=== PATIENT | female | born 1990 | race Caucasian/White ===

== ENCOUNTER 2017-10-31 19:05 | Emergency (ER) | payer BC ==
[2017-10-31] MEDS ORDERED: Silver Sulfadiazine 1% Crm 50 GM Tube TOP ONE (19:29)
[2017-10-31] MEDS ORDERED: Diphtheria,Pertussis(Acell),Tetanus Vaccine 0.5 ML Syringe IM ONE (19:31)
--- NOTE | 2017-10-31 19:34 | EDM.PDOC ---
ED HPI GENERAL MEDICAL PROBLEM - General Chief Complaint: Burn Stated Complaint: LEFT INDEX FINGER GREASE BURN Time Seen by Provider: 10/31/17 19:12 Source of Information: Reports: Patient History Limitations: Reports: No Limitations - History of Present Illness INITIAL COMMENTS - FREE TEXT/NARRATIVE: HISTORY AND PHYSICAL: History of present illness: 27-year-old female presenting to emergency department with chief complaint of her into the left index finger. Patient states that she was cooking a chicken fried steak when the vegetable oil splashed onto the tip of her left index finger approximately a half an hour ago. She did run some cool water over the area but secondary to it hurting intensely currently 9 out of 10 she came into the emergency department for further evaluation. Patient denies any other injuries or jeronimo. Pain isolated to her left index finger but with some throbbing and radiation down the finger into her hand. Patient states her last tetanus was greater than 5 years ago. Patient has no allergy to penicillins. On examination there is a superficial burn to the tip of the left first digit less than 1% body surface area. Areas erythematous and dry without any weeping. Burn does not appear to be circumferential. Review of systems: As per history of present illness and below otherwise all systems reviewed and negative. Past medical history: As per history of present illness and as reviewed below otherwise noncontributory. Surgical history: As per history of present illness and as reviewed below otherwise noncontributory. Social history: No reported history of drug or alcohol abuse. Family history: As per history of present illness and as reviewed below otherwise noncontributory. Physical exam: HEENT: Atraumatic, normocephalic, pupils reactive, negative for conjunctival pallor or scleral icterus, mucous membranes moist, throat clear, neck supple, nontender, trachea midline. Lungs: Clear to auscultation, breath sounds equal bilaterally, chest nontender. Heart: S1S2, regular, negative for clicks, rubs, or JVD. Abdomen: Soft, nondistended, nontender. Negative for masses or hepatosplenomegaly. Negative for costovertebral tenderness. Pelvis: Stable nontender. Genitourinary: Deferred. Rectal: Deferred. Extremities: Superficial burn to left tip index finger. Mildly erythematous, dry , no weeping or blister formation. Atraumatic, negative for cords or calf pain. Neurovascular unremarkable. Neuro: Awake, alert, oriented. Cranial nerves II through XII unremarkable. Cerebellum unremarkable. Motor and sensory unremarkable throughout. Exam nonfocal. Diagnostics: [] Therapeutics: 1% lidocaine for digital block Cold soapy water cleaning Silvadene Impression: Superficial burn left index finger less than 1% Plan: I did do a digital block as patient was having significant pain radiating into her hand. After digital block patient felt much better and the area was cleaned thoroughly. She was given Tdap as her last tetanus was within 5 years ago. Area was covered in Silvadene and wrapped. She was instructed to use ibuprofen regularly to decrease inflammation and burn response. She was instructed to follow-up with her primary care provider Lyudmila Grey at [place]. I also gave her information on Dr. Larson plastic surgery for further evaluation. Dr. Larson is out until the 11th of this month but I suggested that she follow with her anyway. She was instructed to keep the area clean and return to emergency department if she had a new or worsening symptoms. Definitive disposition and diagnosis as appropriate pending reevaluation and review of above. Treatments FLUE BLOWER: Reports: Other (see below) Other Treatments FLUE BLOWER: wash with water left index Pain Score (Numeric/FACES): 9 - Related Data Allergies Allergy/AdvReac Type Severity Reaction Status Date / Time Penicillins Allergy Swelling Verified 10/31/17 19:11 Home Meds: Home Meds Cholecalciferol (Vitamin D3) [Vitamin D3] 0 mg PO DAILY 10/31/17 [History] Cyanocobalamin (Vitamin B-12) [Vitamin B-12] 1 tab PO DAILY 10/31/17 [History] Ergocalciferol (Vitamin D2) [Vitamin D2] 0 mg PO DAILY 10/31/17 [History] buPROPion [Wellbutrin] 1 cap PO BID 10/31/17 [History] Past Medical History Psychiatric History: Reports: Anxiety, Depression Hematologic History: Reports: B12 Deficiency, Other (See Below) Other Hematologic History: Vit D deficiency - Past Surgical History HEENT Surgical History: Reports: Adenoidectomy, Tonsillectomy Musculoskeletal Surgical History: Reports: Other (See Below) Other Musculoskeletal Surgeries/Procedures:: knee sx Social & Family History - Family History Family Medical History: Noncontributory - Tobacco Use Smoking Status *Q: Never Smoker - Recreational Drug Use Recreational Drug Use: No ED ROS GENERAL - Review of Systems Review Of Systems: ROS reveals no pertinent complaints other than HPI. ED EXAM, GENERAL - Physical Exam Exam: See Below Course - Vital Signs Last Recorded V/S: Last Vital Signs Temp 97.7 F 10/31/17 19:05 Pulse 78 10/31/17 19:05 Resp 18 10/31/17 19:05 BP 150/72 H 10/31/17 19:05 Pulse Ox 96 10/31/17 19:05 - Orders/Labs/Meds Orders: Active Orders 24 hr Category Date Time Status Vaccines to be Administered [RC] PER UNIT ROUTINE Care 10/31/17 19:31 Active Meds: Medications Discontinued Medications Generic Name Dose Route Start Last Admin Trade Name Freq PRN Reason Stop Dose Admin Diphtheria/Tetanus/Acell Pertussis 0.5 ml 10/31/17 19:31 10/31/17 19:39 Adacel IM 10/31/17 19:32 0.5 ml .ONCE ONE Administration Lidocaine HCl 5 ml 10/31/17 19:29 10/31/17 19:38 Xylocaine-Mpf 1% INJECT 10/31/17 19:30 5 ml ONETIME ONE Administration Silver Sulfadiazine 1 gm 10/31/17 19:29 10/31/17 19:38 Silvadene 1% Cream 50 Gm TOP 10/31/17 19:30 1 applic ONETIME ONE Administration Departure - Departure Time of Disposition: 19:52 Disposition: Home, Self-Care 01 Condition: Good Clinical Impression: Superficial burn of back of left hand Qualifiers: Encounter type: initial encounter Qualified Code(s): T23.162A - Burn of first degree of back of left hand, initial encounter - Discharge Information Referrals: Lyudmila Grey NP [Primary Care Provider] - Forms: ED Department Discharge Additional Instructions: My general discharge The following information is given to patients seen in the emergency department who are being discharged to home. This information is to outline your options for follow-up care. We provide all patients seen in our emergency department with a follow-up referral. The need for follow-up, as well as the timing and circumstances, are variable depending upon the specifics of your emergency department visit. If you don't have a primary care physician on staff, we will provide you with a referral. We always advise you to contact your personal physician following an emergency department visit to inform them of the circumstance of the visit and for follow-up with them and/or the need for any referrals to a consulting specialist. The emergency department will also refer you to a specialist when appropriate. This referral assures that you have the opportunity for follow-up care with a specialist. All of these measure are taken in an effort to provide you with optimal care, which includes your follow-up. Under all circumstances we always encourage you to contact your private physician who remains a resource for coordinating your care. When calling for follow-up care, please make the office aware that this follow-up is from your recent emergency room visit. If for any reason you are refused follow-up, please contact the [facility] Emergency Department at and asked to speak to the emergency department charge nurse. [address] [address] [facility] - Plastic Surgery Professional Building [address] [place] [address], [address] [place] [address] Take ibuprofen on a regular basis throughout the day for pain and inflammation. Keep area clean and apply Silvadene as discussed. Follow-up with your primary care provider. Follow-up with Dr. aLrson plastic surgery with number of 12. Return to emergency department if any new or worsening symptoms. - My Orders Last 24 Hours: My Active Orders 10/31/17 19:31 Vaccines to be Administered [RC] PER UNIT ROUTINE - Assessment/Plan Last 24 Hours: My Active Orders 10/31/17 19:31 Vaccines to be Administered [RC] PER UNIT ROUTINE
[2017-10-31 20:05] VITALS: BP 123/77
== END 2017-10-31 20:00 | disposition home or self-care (01) ==
LOC: MW.ED 19:05
DX: T23.122A Burn of first degree of single left finger (nail) except thumb, initial encounter (principal); T31.0 Burns involving less than 10% of body surface; Z23 Encounter for immunization; Z79.899 Other long term (current) drug therapy; F41.9 Anxiety disorder, unspecified; F32.9 Major depressive disorder, single episode, unspecified; Z88.0 Allergy status to penicillin
CPT/HCPCS: 16000; 64450; 90471; 90715; 99283; A9270; 99282

== ENCOUNTER 2018-11-10 08:20 | Inpatient (IN) | payer BC ==
[2018-11-10] MEDS ORDERED: Tranexamic Acid 1,000 MG in Sodium Chloride 0.9% 100 ML IV PRN (09:36)
[2018-11-10] MEDS ORDERED: Misoprostol 200 MCG Tab PO PRN (09:36)
[2018-11-10] MEDS ORDERED: Methylergonovine 0.2 MG/1 ML Amp IM PRN (09:36)
[2018-11-10] MEDS ORDERED: Sodium Chloride 0.9% 10 ML Syringe FLUSH PRN (09:36)
[2018-11-10] MEDS ORDERED: Water For Irrigation,Sterile 1,000 ML Container IRR PRN (09:36)
[2018-11-10] MEDS ORDERED: Butorphanol 1 MG/ML SDV IVPUSH PRN (09:36)
[2018-11-10] MEDS ORDERED: Carboprost Tromethamine 250 MCG/1 ML Amp IM PRN (09:36)
[2018-11-10] MEDS ORDERED: Lidocaine 1% 50 ML MDV INJECT PRN (09:36)
[2018-11-10] MEDS ORDERED: Sodium Chloride 0.9% 10 ML SDV IV PRN (09:36)
[2018-11-10] MEDS ORDERED: Nalbuphine 10 MG/1 ML Vial IVPUSH PRN (09:36)
[2018-11-10] MEDS ORDERED: Sodium Chloride 0.9% 2.5 ML Syringe FLUSH PRN (09:36)
[2018-11-10] MEDS ORDERED: Oxytocin/0.9 % Sodium Chloride 30 UNIT/500 ML BAG IV SCH (09:45)
[2018-11-10] MEDS: Lactated Ringers 1,000 ML IV SCH ×3 (10:34→16:59)
[2018-11-10] MEDS: Clindamycin Phosphate in D5W 900 MG in Premix Bag 1 BAG IV SCH ×4 (10:34→18:01)
[2018-11-10] MEDS ORDERED: Bupivacaine 0.25% 10 ML SDV ONE (13:02)
[2018-11-10] MEDS ORDERED: fentaNYL 100 MCG/2 ML SDV ONE (13:02)
[2018-11-10] MEDS ORDERED: Lidocaine HCl/EPINEPHrine 5 ML IJ ONE (13:03)
--- NOTE | 2018-11-10 13:53 | PCM.PREANE ---
Preanesthetic Assessment - Procedure Proposed Procedure: BARAK - Anesthesia/Transfusion/Family Hx Anesthesia History: Prior Anesthesia Without Reaction Other Type of Anesthesia Reaction Comment: DENIES ANY PROBLEMS WITH ANESTHESIA Family History of Anesthesia Reaction: No Transfusion History: No Prior Transfusion(s) - Review of Systems General: No Symptoms Pulmonary: No Symptoms Cardiovascular: No Symptoms Gastrointestinal: Other (morbid obesity) Neurological: Pre-Existing Deficit (c/o numbness and tingling in arms and legs throughout ) Other: Reports: None - Physical Assessment Height: 5 ft 4 in Weight: 123.831 kg ASA Class: 3 Mental Status: Alert & Oriented x3 Airway Class: Mallampati = 2 Dentition: Reports: Normal Dentition ROM/Head Extension: Full Lungs: Clear to Auscultation, Normal Respiratory Effort Cardiovascular: Regular Rate, Regular Rhythm - Lab Values: Laboratory Last Values WBC 13.24 K/uL (4.0-11.0) H 11/10/18 10:14 RBC 3.93 M/uL (4.30-5.90) L 11/10/18 10:14 Hgb 11.1 g/dL (12.0-16.0) L 11/10/18 10:14 Hct 33.4 % (36.0-46.0) L 11/10/18 10:14 MCV 85.0 fL (80.0-98.0) 11/10/18 10:14 MCH 28.2 pg (27.0-32.0) 11/10/18 10:14 MCHC 33.2 g/dL (31.0-37.0) 11/10/18 10:14 RDW Std Deviation 40.8 fl (28.0-62.0) 11/10/18 10:14 RDW Coeff of Caroline 13 % (11.0-15.0) 11/10/18 10:14 Plt Count 230 K/uL (150-400) 11/10/18 10:14 MPV 12.00 fL (7.40-12.00) 11/10/18 10:14 Nucleated RBC % 0.0 /100WBC 11/10/18 10:14 Nucleated RBCs # 0 K/uL 11/10/18 10:14 Urine Color YELLOW 11/10/18 11:21 Urine Appearance CLEAR 11/10/18 11:21 Urine pH 7.0 (5.0-8.0) 11/10/18 11:21 Ur Specific [place] 1.010 (1.001-1.035) 11/10/18 11:21 Urine Protein NEGATIVE mg/dL (NEGATIVE) 11/10/18 11:21 Urine Glucose (UA) NEGATIVE mg/dL (NEGATIVE) 11/10/18 11:21 Urine Ketones >=80 mg/dL (NEGATIVE) 11/10/18 11:21 Urine Occult Blood LARGE (NEGATIVE) H 11/10/18 11:21 Urine Nitrite NEGATIVE (NEGATIVE) 11/10/18 11:21 Urine Bilirubin NEGATIVE (NEGATIVE) 11/10/18 11:21 Urine Urobilinogen 0.2 EU/dL (<2.0) 11/10/18 11:21 Ur Leukocyte Esterase SMALL (NEGATIVE) H 11/10/18 11:21 Membrane Rupture POSITIVE 11/10/18 08:43 Blood Type A POSITIVE 11/10/18 10:14 Antibody Screen NEGATIVE 11/10/18 10:14 - Allergies Allergies/Adverse Reactions: Allergies Allergy/AdvReac Type Severity Reaction Status Date / Time Penicillins Allergy Intermediate Swelling Verified 11/10/18 08:54 - Blood Blood Available: No Product(s) Available: None - Anesthesia Plan Pre-Op Medication Ordered: None - Acknowledgements Anesthesia Type Planned: Epidural Pt an Appropriate Candidate for the Planned Anesthesia: Yes Alternatives and Risks of Anesthesia Discussed w Pt/Guardian: Yes Pt/Guardian Understands and Agrees with Anesthesia Plan: Yes PreAnesthesia Questionnaire - Past Health History Medical/Surgical History: Denies Medical/Surgical History [employer] History: Reports: Psychiatric History: Reports: Anxiety, Depression Hematologic History: Reports: B12 Deficiency, Other (See Below) Other Hematologic History: Vit D deficiency - Infectious Disease History Infectious Disease History: Reports: Chicken Pox - Past Surgical History HEENT Surgical History: Reports: Adenoidectomy, Tonsillectomy Musculoskeletal Surgical History: Reports: Other (See Below) Other Musculoskeletal Surgeries/Procedures:: knee sx - SUBSTANCE USE Smoking Status *Q: Never Smoker Second Hand Smoke Exposure: No - HOME MEDS Home Medications: Home Meds Doxylamine/Pyridoxine HCl [Diclegis Dr 10-10 mg Tablet] 2 tab PO DAILY 10/24/18 [History] Folic Acid 1 tab PO DAILY 10/24/18 [History] PNV95/Ferrous Fumarate/FA [ Tablet] 1 tab PO DAILY 10/24/18 [History] - CURRENT (IN HOUSE) MEDS Current Meds: Current Medications Butorphanol Tartrate (Stadol) 1 mg IVPUSH Q1H PRN PRN Reason: Pain Carboprost Tromethamine (Hemabate Ds) 250 mcg IM ASDIRECTED PRN PRN Reason: Post Hemorrhage Tranexamic Acid 1,000 mg/ (Sodium Chloride) 110 mls @ 660 mls/hr IV ONETIME PRN PRN Reason: Bleeding Lactated Ringer's (Ringers, Lactated) 1,000 mls @ 150 mls/hr IV ASDIRECTED [facility] Last Admin: 11/10/18 13:00 Dose: 999 mls/hr Oxytocin/Sodium Chloride (Oxytocin 30 Unit/500 Ml-Ns) 30 unit in 500 mls @ 500 mls/hr IV TITRATE [facility] Clindamycin Phosphate 900 mg/ (Premix) 50 mls @ 100 mls/hr IV Q8H [facility] Last Admin: 11/10/18 10:34 Dose: 100 mls/hr Lidocaine HCl (Xylocaine 1%) 50 ml INJECT ONETIME PRN PRN Reason: Laceration repair Methylergonovine Maleate (Methergine) 0.2 mg IM ASDIRECTED PRN PRN Reason: Post Hemorrhage Misoprostol (Cytotec) 200 mcg PO ONETIME PRN PRN Reason: Post Hemorrhage Nalbuphine HCl (Nubain) 10 mg IVPUSH Q1H PRN PRN Reason: Pain (severe 7-10) Sodium Chloride (Saline Flush) 10 ml FLUSH ASDIRECTED PRN PRN Reason: Keep Vein Open Sodium Chloride (Saline Flush) 2.5 ml FLUSH ASDIRECTED PRN PRN Reason: Keep Vein Open Sodium Chloride (Normal Saline) 10 ml IV ASDIRECTED PRN PRN Reason: IV Use Sterile Water (Sterile Water For Irrigation) 1,000 ml IRR ASDIRECTED PRN PRN Reason: delivery Discontinued Medications Bupivacaine HCl (Sensorcaine-Mpf 0.25%) Confirm Administered Dose 10 ml .ROUTE .STK-MED ONE Stop: 11/10/18 13:03 Fentanyl (Sublimaze) Confirm Administered Dose 100 mcg .ROUTE .STK-MED ONE Stop: 11/10/18 13:03 Fentanyl/Bupivacaine HCl (Jknitndh-Ylkgl-Eu 2 Mcg/Ml-0.125%) Confirm Administered Dose 100 mls @ as directed .ROUTE .STK-MED ONE Stop: 11/10/18 13:03 Lidocaine/Epinephrine (Lidocaine 1.5%-Epi 1:200,000) Confirm Administered Dose 5 ml IJ .STK-MED ONE Stop: 11/10/18 13:04
[2018-11-10] MEDS ORDERED: Bupivacaine 0.5% 10 ML SDV ONE (21:06)
[2018-11-11] MEDS ORDERED: Witch Hazel Medicated Pads 40/Jar TOP PRN (01:12)
[2018-11-11] MEDS ORDERED: Bisacodyl 10 MG Supp RECTAL PRN (01:12)
[2018-11-11] MEDS ORDERED: Benzocaine/Menthol 20%-0.5% Spray 78 GM Cannister TOP PRN (01:12)
[2018-11-11] MEDS ORDERED: Ibuprofen 400 MG Tab PO PRN (01:12)
[2018-11-11] MEDS ORDERED: Ondansetron 4 MG/2 ML SDV IVPUSH PRN (01:12)
[2018-11-11] MEDS ORDERED: Lanolin 100% Cream 7 GM Tube TOP PRN (01:12)
[2018-11-11] MEDS ORDERED: Acetaminophen 500 MG Tab PO PRN ×2 (01:12)
[2018-11-11] MEDS ORDERED: oxyCODONE 5 MG Tab PO PRN (01:12)
--- NOTE | 2018-11-11 01:22 | PCM.OPNOTE ---
- General Post-Op/Procedure Note Date of Surgery/Procedure: 11/11/18 Operative Procedure(s): Vaccuum assisted vaginal delivery with 2nd MLL repaired Findings: Viable female APGARs 8, 9 weight 3620 gm. Spontaneous delivery intact placenta with 3V cord Pre Op Diagnosis: 36/6 week IUP. ROM. GBBS +. Maternal exhaustion Post-Op Diagnosis: Same Anesthesia Technique: Epidural Primary Surgeon: Giselle Lindsay EBL in mLs: 300 Complications: none known Condition: Good Free Text/Narrative:: Intake & Output 11/10/18 11/10/18 11/11/18 14:59 22:59 06:59 Intake Total 1050 1050 Balance 1050 1050 Dictation [id number]
[2018-11-11] MEDS ORDERED: Ondansetron 4 MG Tab.DIS PO PRN (02:34)
[2018-11-11] MEDS ORDERED: Ondansetron 4 MG Tab.DIS ONE (02:38)
[2018-11-11] MEDS: Ibuprofen 800 MG Tab PO PRN ×3 (02:42→18:49)
--- NOTE | 2018-11-11 03:54 | OR ---
SURGEON: Giselle Lindsay M.D. DATE OF PROCEDURE: 11/11/2018 PREOPERATIVE DIAGNOSES: 1. 36 and 6-week intrauterine . 2. rupture of membranes. 3. Group B beta strep positive. 4. Maternal exhaustion POSTOPERATIVE DIAGNOSES: 1. 36 and 6-week intrauterine . 2. rupture of membranes. 3. Group B beta strep positive. 4. Maternal exhaustion. PROCEDURE: Vacuum-assisted vaginal delivery, second-degree midline laceration repaired. PRIMARY SURGEON: Giselle Lindsay M.D. ANESTHESIA: Epidural. ESTIMATED BLOOD LOSS: 300 mL. COMPLICATIONS: None known. FINDINGS: Viable female, scores 8 at 1 minute and 9 at 5 minutes, weight of 3620 g. Spontaneous delivery, intact placenta, 3-vessel cord. DISPOSITION: to nursery, mom in LDRP. PROCEDURE DETAILS: Kellen is a 28-year-old, , at 36 and 5 weeks' gestation. Upon presentation on the morning of 11/10/2018, with spontaneous rupture of membranes approximately at 7:30 a.m., clear fluid was noted. She was known to be group B beta strep positive; therefore, was initiated on clindamycin prophylaxis. On initial examination, was found to be 1 cm, but began valente regularly on her own. The patient was admitted. Routine labs were drawn. The patient continued to contract and progressed into an active labor pattern. She made spontaneous change in cervical dilation to 3 to 4 cm, became increasingly uncomfortable, progressed to 5 cm. Underwent regional anesthesia from epidural, became more comfortable. Progressed to 7 cm and by approximately 5:00 p.m., was found to be complete, 100% effaced, 0 station. With initial pushing efforts, there was variable descent, the patient was not feeling much urge to push. Therefore, was repositioned and allowed to continue to labor. She began pushing efforts again with some increasing pressure shortly after 8:00 p.m., and over the next approximately 3 hours, was able to progress to +2 station, but was making very little change beyond that and increasingly tired. On my assessment, she was felt to be OA position. Sagittal suture was able to be palpated. heart tones were in the 110s to 120s. At this juncture, discussed with the patient to continue with pushing efforts or could also proceed with an operative vaginal delivery. Risks of vacuum-assisted vaginal delivery discussed with her including possible risks to the baby including scalp bruising in the form of cephalhematoma, intracranial bleeding and increased risk for maternal vaginal laceration trauma. The patient and her voiced their understanding. At this juncture, she would like to proceed with an operative vaginal delivery. The estimated weight was approximately 3500 g by Jack. Again noted the fetus to be a FAUZIA position with sagittal suture able to be palpated. The patient was placed in modified dorsal lithotomy position, was prepped and draped in the usual aseptic manner. With the next 2 contractions, was able to push readily and then upon arrival employment law specialist was gently able to place the Mityvac in. With the next approximately 3 contractions, with the vacuum insufflated to the green zone, releasing between contractions, was able to deliver the head to +5 station. Vacuum was released. Remainder of the head delivered followed by anterior shoulder, posterior shoulder, and remainder of the body. 's oropharynx and nares bulb suctioned. was crying and vigorous, and was handed off to her mother with attending employment law specialist and nursing staff at her side. After delay, the cord was clamped x2 and cut. Cord arterial, cord venous, cord blood sampling was obtained. Light pressure was applied while the placenta was delivered spontaneously intact. Vigorous fundal uterine massage was then applied while 30 units of Pitocin was delivered in 500 mL of IV fluid. Upon inspection of cervix, vaginal sidewalls, and perineum, there was found to be a second-degree midline laceration and was repaired using 2-0 Vicryl followed by 3-0 Vicryl, and there was also a first-degree midline periurethral laceration that was repaired using a 3-0 Vicryl [id number] suture. Hemostasis appeared evident after that. Uterus remained firm. Sponge, instrument, and needle counts were correct. The patient remained in LDRP, infant in nursery. SHOLA / MARCIA /[id number] MIKAL
--- NOTE | 2018-11-11 08:07 | PCM.POSTAN ---
POST ANESTHESIA ASSESSMENT - MENTAL STATUS Mental Status: Alert - RESPIRATORY Respiratory Status: Respiratory Rate WNL - CARDIOVASCULAR CV Status: Pulse Rate WNL - GASTROINTESTINAL GI Status: No Symptoms - POST OP HYDRATION Hydration Status: Adequate & Stable
--- NOTE | 2018-11-11 08:08 | PCM48HPAN ---
Post Anesthesia Note - EVALUATION WITHIN 48HRS OF ANESTHETIC Vital Signs in Normal Range: Yes Patient Participated in Evaluation: Yes Respiratory Function Stable: Yes Airway Patent: Yes Cardiovascular Function Stable: Yes Hydration Status Stable: Yes Pain Control Satisfactory: Yes Nausea and Vomiting Control Satisfactory: Yes Mental Status Recovered: Yes Resp Rate: 18
[2018-11-12] MEDS: Ibuprofen 800 MG Tab PO PRN ×2 (04:15→21:19)
[2018-11-12] MEDS: Docusate Sodium 100 MG Cap PO PRN ×2 (08:04→20:54)
--- NOTE | 2018-11-12 12:21 | PCM.PNPP ---
- General Info Date of Service: 11/12/18 Functional Status: Reports: Pain Controlled, Tolerating Diet, Ambulating, Urinating - Review of Systems General: Denies: Fever, Weakness, Fatigue HEENT: Reports: Visual Changes Pulmonary: Denies: Shortness of Breath Cardiovascular: Denies: Chest Pain, Palpitations, Lightheadedness Gastrointestinal: Reports: Flatus. Denies: Abdominal Pain, Nausea, Vomiting Genitourinary: Denies: Flank Pain Musculoskeletal: Reports: Other (generalized muscle soreness from pushing effots ) Skin: Reports: No Symptoms Neurological: Reports: No Symptoms Psychiatric: Reports: No Symptoms - General Info Date of Service: 11/12/18 - Patient Data Vital Signs - Most Recent: Last Vital Signs Temp 36.5 C 11/12/18 07:33 Pulse 74 11/12/18 07:33 Resp 18 11/12/18 07:33 BP 125/88 11/12/18 09:25 Pulse Ox 99 11/12/18 07:33 Weight - Most Recent: 123.831 kg Lab Results - Last 24 Hours: Laboratory Results - last 24 hr 11/12/18 Range/Units 05:58 Hgb 8.3 L (12.0-16.0) g/dL Hct 26.3 L (36.0-46.0) % Med Orders - Current: Current Medications Acetaminophen (Tylenol Extra Strength) 500 mg PO Q4H PRN PRN Reason: Pain Acetaminophen (Tylenol Extra Strength) 1,000 mg PO Q4H PRN PRN Reason: Pain Benzocaine/Menthol (Dermoplast Pain Relief 20%-0.5% [place]) 78 gm TOP ASDIRECTED PRN PRN Reason: Perineal Comfort Measure Last Admin: 11/11/18 02:41 Dose: 78 gm Bisacodyl (Dulcolax) 10 mg RECTAL ONETIME PRN PRN Reason: Constipation Carboprost Tromethamine (Hemabate Ds) 250 mcg IM ASDIRECTED PRN PRN Reason: Post Hemorrhage Docusate Sodium (Colace) 100 mg PO BID PRN PRN Reason: Constipation Last Admin: 11/12/18 08:04 Dose: 100 mg Emollient Ointment (Lansinoh Hpa) 0 gm TOP ASDIRECTED PRN PRN Reason: Sore Nipples Tranexamic Acid 1,000 mg/ (Sodium Chloride) 110 mls @ 660 mls/hr IV ONETIME PRN PRN Reason: Bleeding Lactated Ringer's (Ringers, Lactated) 1,000 mls @ 150 mls/hr IV ASDIRECTED LIEN Last Admin: 11/10/18 16:59 Dose: 150 mls/hr Oxytocin/Sodium Chloride (Oxytocin 30 Unit/500 Ml-Ns) 30 unit in 500 mls @ 500 mls/hr IV TITRATE LIEN Ibuprofen (Motrin) 400 mg PO Q4H PRN PRN Reason: Pain Ibuprofen (Motrin) 800 mg PO Q6H PRN PRN Reason: Pain Last Admin: 11/12/18 04:15 Dose: 800 mg Lidocaine HCl (Xylocaine 1%) 50 ml INJECT ONETIME PRN PRN Reason: Laceration repair Methylergonovine Maleate (Methergine) 0.2 mg IM ASDIRECTED PRN PRN Reason: Post Hemorrhage Ondansetron HCl (Zofran) 4 mg IVPUSH Q6H PRN PRN Reason: Nausea/Vomiting Ondansetron HCl (Zofran Odt) 4 mg PO Q4H PRN PRN Reason: Nausea/Vomiting Last Admin: 11/11/18 02:42 Dose: 4 mg Oxycodone HCl (Oxycodone) 5 mg PO Q2H PRN PRN Reason: Pain Sodium Chloride (Saline Flush) 10 ml FLUSH ASDIRECTED PRN PRN Reason: Keep Vein Open Sodium Chloride (Saline Flush) 2.5 ml FLUSH ASDIRECTED PRN PRN Reason: Keep Vein Open Sodium Chloride (Normal Saline) 10 ml IV ASDIRECTED PRN PRN Reason: IV Use Sterile Water (Sterile Water For Irrigation) 1,000 ml IRR ASDIRECTED PRN PRN Reason: delivery Witch Magda (Tucks) 1 pad TOP ASDIRECTED PRN PRN Reason: comfort care Discontinued Medications Bupivacaine HCl (Sensorcaine-Mpf 0.25%) Confirm Administered Dose 10 ml .ROUTE .STK-MED ONE Stop: 11/10/18 13:03 Last Admin: 11/11/18 07:55 Dose: Not Given Bupivacaine HCl (Sensorcaine-Mpf 0.5%) Confirm Administered Dose 10 ml .ROUTE .STK-MED ONE Stop: 11/10/18 21:07 Last Admin: 11/11/18 07:56 Dose: Not Given Butorphanol Tartrate (Stadol) 1 mg IVPUSH Q1H PRN PRN Reason: Pain Fentanyl (Sublimaze) Confirm Administered Dose 100 mcg .ROUTE .STK-MED ONE Stop: 11/10/18 13:03 Last Admin: 11/11/18 07:56 Dose: Not Given Clindamycin Phosphate 900 mg/ (Premix) 50 mls @ 100 mls/hr IV Q8H LIEN Last Admin: 11/10/18 18:01 Dose: 100 mls/hr Fentanyl/Bupivacaine HCl (Pgeoavqs-Lmjow-Fn 2 Mcg/Ml-0.125%) Confirm Administered Dose 100 mls @ as directed .ROUTE .STK-MED ONE Stop: 11/10/18 13:03 Last Admin: 11/11/18 07:55 Dose: Not Given Fentanyl/Bupivacaine HCl (Odowixlv-Tumbw-Fb 2 Mcg/Ml-0.125%) Confirm Administered Dose 100 mls @ as directed .ROUTE .STK-MED ONE Stop: 11/10/18 21:07 Last Admin: 11/11/18 07:56 Dose: Not Given Lidocaine/Epinephrine (Lidocaine 1.5%-Epi 1:200,000) Confirm Administered Dose 5 ml IJ .STK-MED ONE Stop: 11/10/18 13:04 Last Admin: 11/11/18 07:56 Dose: Not Given Misoprostol (Cytotec) 200 mcg PO ONETIME PRN PRN Reason: Post Hemorrhage Nalbuphine HCl (Nubain) 10 mg IVPUSH Q1H PRN PRN Reason: Pain (severe 7-10) Ondansetron HCl (Zofran Odt) Confirm Administered Dose 4 mg .ROUTE .STK-MED ONE Stop: 11/11/18 02:39 Last Admin: 11/11/18 07:57 Dose: Not Given - Interaction Support Person: - Recovery Exam Fundal Tone: Firm Fundal Level: 1 Fingerbreadths Below Umbilicus Fundal Placement: Midline Lochia Amount: Scant Lochia Color: Rubra/Red Perineum Description: Intact, Minimal Bruising/Swelling, Other (see below) Other Perinuem Description: 2nd degree laceration Episiotomy/Laceration: Approximated Bladder Status: Voiding Urinary Elimination: Voided - Exam General: Alert, Oriented Lungs: Normal Respiratory Effort Cardiovascular: Regular Rate, Regular Rhythm GI/Abdominal Exam: Normal Bowel Sounds, Soft Extremities: Pedal Edema (trace). No: Gucci's Sign Skin: Warm, Dry, Intact Neurological: No New Focal Deficit Psy/Mental Status: Alert, Normal Affect, Normal Mood - Problem List & Annotations (1) Status post vacuum-assisted vaginal delivery SNOMED Code(s): 578999960, 01395954260100292 Code(s): Z87.59 - PERSONAL HISTORY OF COMP OF PREG, CHLDBRTH AND THE PUERP Status: Acute Current Visit: Yes - Problem List Review Problem List Initiated/Reviewed/Updated: Yes - Assessment Assessment:: PPD 1 status post vaccuum assisted vaginal delivery GBBS + - Plan Plan:: Patient is doing well overall, while anemic has no orthostatic symptoms. Baby has been weaned off CPAP and remains on iv antibiotics (will be on for 7 days). Continue PP cares, anticipate discharge for patient in the morning. Continue PP cares.
--- NOTE | 2018-11-12 21:19 | PCM.SN ---
- Free Text/Narrative Note: Called with labile blood pressures--ranging from 120/70-150/90. Patient denies visual changes. Does not complain of headache, but when asked says has a vague headache. She is sore along her back/chest and arms from pushing. She is tired. She has not had any pain meds since this morning. Will use a warm pack to her shoulder, take some ibuprofen. PIH labs. Explained if BPs remain greater than 140/90, may need to start a antihypertensive. She voices her understanding.
[2018-11-12 21:35] LABS: CHLORIDE,CL 106 mmol/L (98-107); SODIUM,NA 138 mmol/L (136-145)
[2018-11-13] MEDS ORDERED: Measles, Mumps & Rubella Vaccine 0.5 ML SDV SUBCUT ONE (00:59)
[2018-11-13 08:05] VITALS: BP 122/75
--- NOTE | 2018-11-13 08:49 | PCM.PNPP ---
- General Info Date of Service: 11/13/18 Subjective Update: Feeing better today, denies headache or visual changes. Had bowel movement. Breast feeding is going well, good supply. Baby will be kept for 1 week, she would like to be discharged with rooming in if possible. Functional Status: Reports: Pain Controlled, Tolerating Diet, Ambulating, Urinating - Review of Systems General: Reports: No Symptoms HEENT: Reports: No Symptoms Pulmonary: Reports: No Symptoms Cardiovascular: Reports: No Symptoms Gastrointestinal: Reports: No Symptoms Genitourinary: Reports: No Symptoms Musculoskeletal: Reports: No Symptoms Skin: Reports: No Symptoms Neurological: Reports: No Symptoms Psychiatric: Reports: No Symptoms - Patient Data Vital Signs - Most Recent: Last Vital Signs Temp 36.3 C 11/13/18 08:03 Pulse 86 11/13/18 08:03 Resp 16 11/13/18 08:03 BP 122/75 11/13/18 08:03 Pulse Ox 98 11/13/18 08:03 Weight - Most Recent: 123.831 kg Lab Results - Last 24 Hours: Laboratory Results - last 24 hr 11/12/18 11/12/18 11/12/18 Range/Units 21:06 21:06 21:15 WBC 13.54 H (4.0-11.0) K/uL RBC 3.07 L (4.30-5.90) M/uL Hgb 8.6 L (12.0-16.0) g/dL Hct 26.5 L (36.0-46.0) % MCV 86.3 (80.0-98.0) fL MCH 28.0 (27.0-32.0) pg MCHC 32.5 (31.0-37.0) g/dL RDW Std Deviation 43.3 (28.0-62.0) fl RDW Coeff of [place] 14 (11.0-15.0) % Plt Count 216 (150-400) K/uL MPV 11.70 (7.40-12.00) fL Neut % (Auto) 70.6 (48.0-80.0) % Lymph % (Auto) 19.4 (16.0-40.0) % [place] % (Auto) 8.1 (0.0-15.0) % Eos % (Auto) 1.7 (0.0-7.0) % Baso % (Auto) 0.2 (0.0-1.5) % Neut # (Auto) 9.6 H (1.4-5.7) K/uL Lymph # (Auto) 2.6 H (0.6-2.4) K/uL [place] # (Auto) 1.1 H (0.0-0.8) K/uL Eos # (Auto) 0.2 (0.0-0.7) K/uL Baso # (Auto) 0.0 (0.0-0.1) K/uL Nucleated RBC % 0.0 /100WBC Nucleated RBCs # 0 K/uL Sodium 138 (136-145) mmol/L Potassium 3.3 L (3.5-5.1) mmol/L Chloride 106 (98-107) mmol/L Carbon Dioxide 24.9 (21.0-32.0) mmol/L BUN 6 L (7.0-18.0) mg/dL Creatinine 0.7 (0.6-1.0) mg/dL Est Cr Clr Drug Dosing 104.24 mL/min Estimated GFR (MDRD) > 60.0 ml/min Glucose 109 H (74-106) mg/dL Calcium 8.3 L (8.5-10.1) mg/dL Total Bilirubin 0.2 (0.2-1.0) mg/dL AST 21 (15-37) IU/L ALT 28 (14-63) IU/L Alkaline Phosphatase 61 (46-116) U/L Total Protein 5.5 L (6.4-8.2) g/dL Albumin 2.3 L (3.4-5.0) g/dL Globulin 3.2 (2.6-4.0) g/dL Albumin/Globulin Ratio 0.7 L (0.9-1.6) Urine Color DARK YELLOW Urine Appearance SLT CLOUDY Urine pH 6.5 (5.0-8.0) Ur Specific [place] 1.010 (1.001-1.035) Urine Protein 30 H (NEGATIVE) mg/dL Urine Glucose (UA) NEGATIVE (NEGATIVE) mg/dL Urine Ketones NEGATIVE (NEGATIVE) mg/dL Urine Occult Blood LARGE H (NEGATIVE) Urine Nitrite NEGATIVE (NEGATIVE) Urine Bilirubin NEGATIVE (NEGATIVE) Urine Urobilinogen 0.2 (<2.0) EU/dL Ur Leukocyte Esterase MODERATE H (NEGATIVE) Med Orders - Current: Current Medications Acetaminophen (Tylenol Extra Strength) 500 mg PO Q4H PRN PRN Reason: Pain Acetaminophen (Tylenol Extra Strength) 1,000 mg PO Q4H PRN PRN Reason: Pain Benzocaine/Menthol (Dermoplast Pain Relief 20%-0.5% [place]) 78 gm TOP ASDIRECTED PRN PRN Reason: Perineal Comfort Measure Last Admin: 11/11/18 02:41 Dose: 78 gm Bisacodyl (Dulcolax) 10 mg RECTAL ONETIME PRN PRN Reason: Constipation Carboprost Tromethamine (Hemabate Ds) 250 mcg IM ASDIRECTED PRN PRN Reason: Post Hemorrhage Docusate Sodium (Colace) 100 mg PO BID PRN PRN Reason: Constipation Last Admin: 11/12/18 20:54 Dose: 100 mg Emollient Ointment (Lansinoh Hpa) 0 gm TOP ASDIRECTED PRN PRN Reason: Sore Nipples Tranexamic Acid 1,000 mg/ (Sodium Chloride) 110 mls @ 660 mls/hr IV ONETIME PRN PRN Reason: Bleeding Lactated Ringer's (Ringers, Lactated) 1,000 mls @ 150 mls/hr IV ASDIRECTED LIEN Last Admin: 11/10/18 16:59 Dose: 150 mls/hr Oxytocin/Sodium Chloride (Oxytocin 30 Unit/500 Ml-Ns) 30 unit in 500 mls @ 500 mls/hr IV TITRATE [facility] Ibuprofen (Motrin) 400 mg PO Q4H PRN PRN Reason: Pain Ibuprofen (Motrin) 800 mg PO Q6H PRN PRN Reason: Pain Last Admin: 11/12/18 21:19 Dose: 800 mg Lidocaine HCl (Xylocaine 1%) 50 ml INJECT ONETIME PRN PRN Reason: Laceration repair Methylergonovine Maleate (Methergine) 0.2 mg IM ASDIRECTED PRN PRN Reason: Post Hemorrhage Ondansetron HCl (Zofran) 4 mg IVPUSH Q6H PRN PRN Reason: Nausea/Vomiting Ondansetron HCl (Zofran Odt) 4 mg PO Q4H PRN PRN Reason: Nausea/Vomiting Last Admin: 11/11/18 02:42 Dose: 4 mg Oxycodone HCl (Oxycodone) 5 mg PO Q2H PRN PRN Reason: Pain Sodium Chloride (Saline Flush) 10 ml FLUSH ASDIRECTED PRN PRN Reason: Keep Vein Open Sodium Chloride (Saline Flush) 2.5 ml FLUSH ASDIRECTED PRN PRN Reason: Keep Vein Open Sodium Chloride (Normal Saline) 10 ml IV ASDIRECTED PRN PRN Reason: IV Use Sterile Water (Sterile Water For Irrigation) 1,000 ml IRR ASDIRECTED PRN PRN Reason: delivery Emily Man (Tucks) 1 pad TOP ASDIRECTED PRN PRN Reason: comfort care Discontinued Medications Bupivacaine HCl (Sensorcaine-Mpf 0.25%) Confirm Administered Dose 10 ml .ROUTE .HubHuman-MED ONE Stop: 11/10/18 13:03 Last Admin: 11/11/18 07:55 Dose: Not Given Bupivacaine HCl (Sensorcaine-Mpf 0.5%) Confirm Administered Dose 10 ml .ROUTE .HubHuman-MED ONE Stop: 11/10/18 21:07 Last Admin: 11/11/18 07:56 Dose: Not Given Butorphanol Tartrate (Stadol) 1 mg IVPUSH Q1H PRN PRN Reason: Pain Fentanyl (Sublimaze) Confirm Administered Dose 100 mcg .ROUTE .HubHuman-MED ONE Stop: 11/10/18 13:03 Last Admin: 11/11/18 07:56 Dose: Not Given Clindamycin Phosphate 900 mg/ (Premix) 50 mls @ 100 mls/hr IV Q8H LIEN Last Admin: 11/10/18 18:01 Dose: 100 mls/hr Fentanyl/Bupivacaine HCl (Beiivxdn-Jnmlx-Cw 2 Mcg/Ml-0.125%) Confirm Administered Dose 100 mls @ as directed .ROUTE .STBenchling-MED ONE Stop: 11/10/18 13:03 Last Admin: 11/11/18 07:55 Dose: Not Given Fentanyl/Bupivacaine HCl (Pzdysxbx-Ntoqa-Gv 2 Mcg/Ml-0.125%) Confirm Administered Dose 100 mls @ as directed .ROUTE .STBenchling-MED ONE Stop: 11/10/18 21:07 Last Admin: 11/11/18 07:56 Dose: Not Given Lidocaine/Epinephrine (Lidocaine 1.5%-Epi 1:200,000) Confirm Administered Dose 5 ml IJ .STK-MED ONE Stop: 11/10/18 13:04 Last Admin: 11/11/18 07:56 Dose: Not Given Measles/Mumps/Rubella Vaccine Live (M-M-R Ii Vaccine) 0.5 ml SUBCUT .ONCE ONE Stop: 11/13/18 01:00 Misoprostol (Cytotec) 200 mcg PO ONETIME PRN PRN Reason: Post Hemorrhage Nalbuphine HCl (Nubain) 10 mg IVPUSH Q1H PRN PRN Reason: Pain (severe 7-10) Ondansetron HCl (Zofran Odt) Confirm Administered Dose 4 mg .ROUTE .STK-MED ONE Stop: 11/11/18 02:39 Last Admin: 11/11/18 07:57 Dose: Not Given - Interaction Infant Disposition, : [place] in Room with Family Infant Feeding: Breastfed Infant; Nursed Well Support Person: - Recovery Exam Fundal Tone: Firm Fundal Level: 1 Fingerbreadths Below Umbilicus Fundal Placement: Midline Lochia Amount: Scant Lochia Color: Rubra/Red Perineum Description: Intact, Minimal Bruising/Swelling, Other (see below) Other Perinuem Description: 2nd degree laceration Episiotomy/Laceration: Approximated Bladder Status: Voiding Urinary Elimination: Voided - Exam General: Alert, Oriented Neck: Supple Lungs: Normal Respiratory Effort GI/Abdominal Exam: Soft, Non-Tender, No Organomegaly, No Distention, No Mass Extremities: Normal Inspection, Non-Tender, No Pedal Edema Skin: Warm, Dry, Intact Wound/Incisions: Healing Well Neurological: No New Focal Deficit Psy/Mental Status: Alert, Normal Affect, Normal Mood - Problem List & Annotations (1) Vaginal delivery SNOMED Code(s): 069121943 Code(s): O80 - ENCOUNTER FOR FULL-TERM UNCOMPLICATED DELIVERY Status: Acute Current Visit: Yes - Problem List Review Problem List Initiated/Reviewed/Updated: Yes - Assessment Assessment:: PPD 2 status post vaccuum assisted vaginal delivery GBBS + baby will be on antibiotics for 7 days. BP elevated yesterday but improved today Mild hypokalemia History of depression, currently doing well. - Plan Plan:: Dismiss to home, followup for BP in 3 days in clinic or sooner if symptoms. Will replace K orally. Continue on Wellbutrin and Vitamin D, Continue on iron for one months and PNV while . Discharge instructions reviewed.
== END 2018-11-13 12:20 | disposition home or self-care (01) | DRG 560 ==
LOC: MW.OBCHECK 08:20 → MW.OB 08:21 → MW.OBCHECK 09:40 → MW.OB 09:40 → OBSVTOIN 11-11 01:12 → MW.OB 11-11 02:57
PROVIDERS: ADMIT Obstetrics & Gynecology; ATTEND Obstetrics & Gynecology
PROC: 10D07Z6 Extraction of Products of Conception, Vacuum, Via Natural or Artificial Opening (ICD-10-PCS; principal; 2018-11-11)
PROC: 0HQ9XZZ Repair Perineum Skin, External Approach (ICD-10-PCS; 2018-11-11)
DX: O42.013 Preterm premature rupture of membranes, onset of labor within 24 hours of rupture, third trimester (principal); O70.1 Second degree perineal laceration during delivery; O99.824 Streptococcus B carrier state complicating childbirth; O75.81 Maternal exhaustion complicating labor and delivery; Z37.0 Single live birth; Z3A.36 36 weeks gestation of pregnancy; Z23 Encounter for immunization
CPT/HCPCS: 36415; 51702; 59025; 59409; 80053; 81003; 82803; 84112; 84560; 85014; 85018; 85025; 85027; 86850; 86900; 86901; 90471; 90707; A4217; A9270-GY; J3490; J7120

== ENCOUNTER 2018-11-20 10:54 | Emergency (ER) | payer BC ==
--- NOTE | 2018-11-20 11:09 | EDM.PDOC ---
ED HPI GENERAL MEDICAL PROBLEM - General Chief Complaint: Cardiovascular Problem Stated Complaint: HYPERTENSION Time Seen by Provider: 11/20/18 10:57 Source of Information: Reports: Patient History Limitations: Reports: No Limitations - History of Present Illness INITIAL COMMENTS - FREE TEXT/NARRATIVE: HISTORY AND PHYSICAL: History of present illness: Patient is a 28-year-old female who presents to the emergency room with complaints of hypertension and intermittent headaches since delivery. Mom had a vaginal delivery on 11/11/18. Patient did have an epidural which she states she was "poked twice" due to difficult insertion. The baby was transferred to [place] for NICU care due to a maternal group B strep infection. Since mother' s discharge she has been in [place] with the baby. She does have intermittent episodes of dizziness and headaches. Prior to delivery she had no complications or concerns. Does have a history of anxiety/depression. Previously had been on Wellbutrin but has not taken this since finding out she was . She states she does have mild anxiety although this has not been affecting her. Mom is currently . Patient denies any fever, chills, change in vision, syncope or near syncope. Denies any chest pain, back pain, shortness of breath or cough. Denies any abdominal pain, nausea, vomiting, diarrhea, constipation or dysuria. Has not noted any blood in urine or stool. Patient has been eating and drinking appropriately. Review of systems: As per history of present illness and below otherwise all systems reviewed and negative. Past medical history: As per history of present illness and as reviewed below otherwise noncontributory. Surgical history: As per history of present illness and as reviewed below otherwise noncontributory. Social history: See social history for further information Family history: As per history of present illness and as reviewed below otherwise noncontributory. Physical exam: General: Well developed and well nourished 28-year-old female. Alert and oriented. Nontoxic appearing and in no acute distress. HEENT: Atraumatic, normocephalic, pupils equal and reactive bilaterally, negative for conjunctival pallor or scleral icterus, mucous membranes moist, trachea midline. No drooling or trismus noted. No meningeal signs. No hot potato voice noted. Lungs: Clear to auscultation, breath sounds equal bilaterally, chest nontender. Heart: S1S2, regular rate and rhythm without overt murmur Abdomen: Soft, nondistended, obese, nontender. Negative for masses or hepatosplenomegaly. Negative for costovertebral tenderness. Pelvis: Stable nontender. Genitourinary: Deferred. Rectal: Deferred. Skin: Intact, warm, dry. No lesions or rashes noted. Extremities: Atraumatic, moves all extremities per self without difficulty or deficits, negative for cords or calf pain. Neurovascular unremarkable. Neuro: Awake, alert, oriented. Cranial nerves II through XII unremarkable. Cerebellum unremarkable. Motor and sensory unremarkable throughout. Exam nonfocal. Notes: I did talk with Dr. Fisher (OBGYN on-call for [facility]) about this patient. She would like the patient started on Procardia XL 30 mg once daily. Macrobid twice a day for urinary tract infection. She states that she will have the nurses called the patient to set up a follow-up appointment to have her blood pressure rechecked and evaluated. Patient was made aware of these findings and the conversation with Dr. Fisher. Blood pressure has improved after the by mouth medication. We discussed the need for follow-up and her discharge instructions. Supportive care measures were reviewed and discussed. Voices understanding and is agreeable to plan of care. Denies any further questions or concerns at this time. Diagnostics: CBC, CMP, UA, EKG Therapeutics: Procardia XL Prescription: Procardia XL 30mg daily (#20) Macrobid Impression: HTN Encounter for medical screening exam Plan: 1. Please take the Procardia XL 30 mg once daily as directed. Continue monitoring her blood pressure. 2. Take the antibiotic as prescribed for your urinary tract infection. Please increase your fluids. 3. Dr. Fisher (On-Call OBGYN) will call you to set up a follow-up appointment for reevaluation of your blood pressure. 4. Return to the ED as needed and as discussed. Definitive disposition and diagnosis as appropriate pending reevaluation and review of above. Headache Pain Score (Numeric/FACES): 3 - Related Data Allergies Allergy/AdvReac Type Severity Reaction Status Date / Time Penicillins Allergy Intermediate Swelling Verified 11/10/18 08:54 Home Meds: Home Meds PNV95/Ferrous Fumarate/FA [ Tablet] 1 tab PO DAILY 10/24/18 [History] Potassium Chloride [Klor-Con 10] 10 meq PO DAILY #10 tab.er 11/13/18 [Rx] NIFEdipine [Nifedical XL] 30 mg PO DAILY #30 tab.er 11/20/18 [Rx] Nitrofurantoin Monohyd/M-Cryst [Macrobid 100 mg Capsule] 100 mg PO BID 7 Days # 14 capsule 11/20/18 [Rx] Past Medical History - Past Health History Medical/Surgical History: Denies 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: Psychiatric History: Reports: Anxiety, Depression Hematologic History: Reports: B12 Deficiency, Other (See Below) Other Hematologic History: Vit D deficiency - Infectious Disease History Infectious Disease History: Reports: Chicken Pox - Past Surgical History HEENT Surgical History: Reports: Adenoidectomy, Tonsillectomy Musculoskeletal Surgical History: Reports: Other (See Below) Other Musculoskeletal Surgeries/Procedures:: knee sx Social & Family History - Family History Family Medical History: Noncontributory ED ROS GENERAL - Review of Systems Review Of Systems: ROS reveals no pertinent complaints other than HPI. ED EXAM, GENERAL - Physical Exam Exam: See Below (See dictation) Course - Vital Signs Last Recorded V/S: Last Vital Signs Temp 97.6 F 11/20/18 11:02 Pulse 75 11/20/18 11:02 Resp 16 11/20/18 11:02 BP 163/94 H 11/20/18 12:30 Pulse Ox 99 11/20/18 11:02 - Orders/Labs/Meds Orders: Active Orders 24 hr Category Date Time Status EKG Documentation Completion [RC] STAT Care 11/20/18 11:13 Active CULTURE URINE [RM] Stat Lab 11/20/18 11:23 Received Labs: Laboratory Tests 11/20/18 11/20/18 11/20/18 Range/Units 11:19 11:19 11:23 WBC 8.31 (4.0-11.0) K/uL RBC 3.31 L (4.30-5.90) M/uL Hgb 9.0 L (12.0-16.0) g/dL Hct 28.4 L (36.0-46.0) % MCV 85.8 (80.0-98.0) fL MCH 27.2 (27.0-32.0) pg MCHC 31.7 (31.0-37.0) g/dL RDW Std Deviation 42.4 (28.0-62.0) fl RDW Coeff of Caroline 14 (11.0-15.0) % Plt Count 324 (150-400) K/uL MPV 11.00 (7.40-12.00) fL Neut % (Auto) 66.2 (48.0-80.0) % Lymph % (Auto) 24.2 (16.0-40.0) % [place] % (Auto) 7.2 (0.0-15.0) % Eos % (Auto) 2.0 (0.0-7.0) % Baso % (Auto) 0.4 (0.0-1.5) % Neut # (Auto) 5.5 (1.4-5.7) K/uL Lymph # (Auto) 2.0 (0.6-2.4) K/uL [place] # (Auto) 0.6 (0.0-0.8) K/uL Eos # (Auto) 0.2 (0.0-0.7) K/uL Baso # (Auto) 0.0 (0.0-0.1) K/uL Nucleated RBC % 0.0 /100WBC Nucleated RBCs # 0 K/uL Sodium 142 (136-145) mmol/L Potassium 3.2 L (3.5-5.1) mmol/L Chloride 108 H (98-107) mmol/L Carbon Dioxide 25.1 (21.0-32.0) mmol/L BUN 11 (7.0-18.0) mg/dL Creatinine 0.7 (0.6-1.0) mg/dL Est Cr Clr Drug Dosing 104.24 mL/min Estimated GFR (MDRD) > 60.0 ml/min Glucose 87 (74-106) mg/dL Calcium 8.4 L (8.5-10.1) mg/dL Total Bilirubin 0.4 (0.2-1.0) mg/dL AST 11 L (15-37) IU/L ALT 16 (14-63) IU/L Alkaline Phosphatase 59 (46-116) U/L Total Protein 6.1 L (6.4-8.2) g/dL Albumin 2.9 L (3.4-5.0) g/dL Globulin 3.2 (2.6-4.0) g/dL Albumin/Globulin Ratio 0.9 (0.9-1.6) Urine Color YELLOW Urine Appearance CLEAR Urine pH 7.0 (5.0-8.0) Ur Specific [place] 1.015 (1.001-1.035) Urine Protein TRACE H (NEGATIVE) mg/dL Urine Glucose (UA) NEGATIVE (NEGATIVE) mg/dL Urine Ketones NEGATIVE (NEGATIVE) mg/dL Urine Occult Blood LARGE H (NEGATIVE) Urine Nitrite NEGATIVE (NEGATIVE) Urine Bilirubin NEGATIVE (NEGATIVE) Urine Urobilinogen 0.2 (<2.0) EU/dL Ur Leukocyte Esterase LARGE H (NEGATIVE) Urine RBC 18-20 (0-2/HPF) Urine WBC 10-12 (0-5/HPF) Ur Epithelial Cells FEW (NONE-FEW) Urine Bacteria FEW (NEGATIVE) Urine Mucus MODERATE (NONE-MOD) Meds: Medications Discontinued Medications Generic Name Dose Route Start Last Admin Trade Name Freq PRN Reason Stop Dose Admin Nifedipine 30 mg 11/20/18 12:10 11/20/18 12:30 Procardia Xl PO 11/20/18 12:11 30 mg ONETIME ONE Administration Nifedipine 30 mg 11/20/18 12:20 11/20/18 12:32 Procardia Xl PO 11/20/18 12:21 Not Given ONETIME ONE Departure - Departure Time of Disposition: 12:13 Disposition: Home, Self-Care 01 Clinical Impression: Encounter for medical screening examination Hypertension Qualifiers: Hypertension type: unspecified Qualified Code(s): I10 - Essential (primary) hypertension Prescriptions: NIFEdipine [Nifedical XL] 30 mg PO DAILY #30 tab.er Nitrofurantoin Monohyd/M-Cryst [Macrobid 100 mg Capsule] 100 mg PO BID 7 Days # 14 capsule Instructions: Hypertension, [id number] Forms: ED Department Discharge Additional Instructions: The following information is given to patients seen in the emergency department who are being discharged to home. This information is to outline your options for follow-up care. We provide all patients seen in our emergency department with a follow-up referral. The need for follow-up, as well as the timing and circumstances, are variable depending upon the specifics of your emergency department visit. If you don't have a primary care physician on staff, we will provide you with a referral. We always advise you to contact your personal physician following an emergency department visit to inform them of the circumstance of the visit and for follow-up with them and/or the need for any referrals to a consulting specialist. The emergency department will also refer you to a specialist when appropriate. This referral assures that you have the opportunity for follow-up care with a specialist. All of these measure are taken in an effort to provide you with optimal care, which includes your follow-up. Under all circumstances we always encourage you to contact your private physician who remains a resource for coordinating your care. When calling for follow-up care, please make the office aware that this follow-up is from your recent emergency room visit. If for any reason you are refused follow-up, please contact the [facility] Emergency Department at and asked to speak to the emergency department charge nurse. [facility] [address] [place] [id number] [address] 1. Please take the Procardia XL 30 mg once daily as directed. Continue monitoring your blood pressure. Limited prescription given; have your OBGYN fill your blood pressure medication if she wants you to continue this. 2. Take the antibiotic as prescribed for your urinary tract infection. Please increase your fluids. 3. Dr. Fisher (On-Call OBGYN) will call you to set up a follow-up appointment for reevaluation of your blood pressure. 4. Return to the ED as needed and as discussed. - My Orders Last 24 Hours: My Active Orders 11/20/18 11:13 EKG Documentation Completion [RC] STAT 11/20/18 11:23 CULTURE URINE [RM] Stat - Assessment/Plan Last 24 Hours: My Active Orders 11/20/18 11:13 EKG Documentation Completion [RC] STAT 11/20/18 11:23 CULTURE URINE [RM] Stat
[2018-11-20 12:00] LABS: CHLORIDE,CL 108 mmol/L (98-107); SODIUM,NA 142 mmol/L (136-145)
[2018-11-20] MEDS ORDERED: NIFEdipine 30 MG Tab.ER PO ONE ×2 (12:10→12:20)
[2018-11-20 13:12] VITALS: BP 153/93
== END 2018-11-20 13:07 | disposition home or self-care (01) ==
LOC: MW.ED 10:54
DX: O13.5 Gestational [pregnancy-induced] hypertension without significant proteinuria, complicating the puerperium (principal); Z88.0 Allergy status to penicillin; Z79.899 Other long term (current) drug therapy
CPT/HCPCS: 36415; 80053; 81001; 85025; 87086; 93005; 99284; A9270; 99283

== ENCOUNTER 2019-11-21 11:08 | Inpatient (IN) | payer BC ==
[2019-11-21] MEDS ORDERED: Methylergonovine 0.2 MG/1 ML Amp IM PRN ×2 (12:11→22:09)
[2019-11-21] MEDS ORDERED: Lidocaine 1% 50 ML MDV INJECT PRN (12:11)
[2019-11-21] MEDS ORDERED: Sodium Chloride 0.9% 10 ML Syringe FLUSH PRN (12:11)
[2019-11-21] MEDS ORDERED: Terbutaline 1 MG/ML SDV SUBCUT PRN (12:11)
[2019-11-21] MEDS ORDERED: Water For Irrigation,Sterile 1,000 ML Container IRR PRN (12:11)
[2019-11-21] MEDS ORDERED: Sodium Chloride 0.9% 2.5 ML Syringe FLUSH PRN (12:11)
[2019-11-21] MEDS ORDERED: Tranexamic Acid 1,000 MG in Sodium Chloride 0.9% 100 ML IV PRN (12:11)
[2019-11-21] MEDS ORDERED: Carboprost Tromethamine 250 MCG/1 ML Amp IM PRN (12:11)
[2019-11-21] MEDS ORDERED: Butorphanol 1 MG/ML SDV IVPUSH PRN (12:11)
[2019-11-21] MEDS ORDERED: Sodium Chloride 0.9% 10 ML SDV IV PRN (12:11)
[2019-11-21] MEDS ORDERED: Nalbuphine 10 MG/1 ML Vial IVPUSH PRN (12:11)
[2019-11-21] MEDS ORDERED: Misoprostol 200 MCG Tab PO PRN (12:11)
[2019-11-21] MEDS ORDERED: Lactated Ringers 1,000 ML IV SCH (12:15)
[2019-11-21] MEDS ORDERED: Vancomycin 2 GM in Sodium Chloride 0.9% 500 ML IV SCH ×2 (12:15→21:10)
[2019-11-21] MEDS ORDERED: Oxytocin/0.9 % Sodium Chloride 30 UNIT/500 ML BAG IV SCH ×2 (12:15)
[2019-11-21] MEDS ORDERED: fentaNYL 100 MCG/2 ML SDV ONE (17:20)
[2019-11-21] MEDS ORDERED: Bupivicaine/fentaNYL/NS 250 ML ONE (17:20)
--- NOTE | 2019-11-21 17:59 | PCM.PREANE ---
Preanesthetic Assessment - Anesthesia/Transfusion/Family Hx Anesthesia History: Prior Anesthesia Without Reaction Other Type of Anesthesia Reaction Comment: DENIES ANY PROBLEMS WITH ANESTHESIA Family History of Anesthesia Reaction: No Transfusion History: No Prior Transfusion(s) Intubation History: Unknown - Review of Systems General: No Symptoms Pulmonary: No Symptoms Cardiovascular: No Symptoms Gastrointestinal: No Symptoms Neurological: No Symptoms Other: Reports: None - Physical Assessment Height: 5 ft 4 in Weight: 114.305 kg ASA Class: 2 Mental Status: Alert & Oriented x3 Airway Class: Mallampati = 1 Dentition: Reports: Normal Dentition Thyro-Mental Finger Breadths: 3 Mouth Opening Finger Breadths: 3 ROM/Head Extension: Full Lungs: Clear to Auscultation, Normal Respiratory Effort Cardiovascular: Regular Rate, Regular Rhythm - Lab Values: Laboratory Last Values WBC 10.84 K/uL (4.0-11.0) 11/21/19 11:45 RBC 3.98 M/uL (4.30-5.90) L 11/21/19 11:45 Hgb 10.2 g/dL (12.0-16.0) L 11/21/19 11:45 Hct 32.5 % (36.0-46.0) L 11/21/19 11:45 MCV 81.7 fL (80.0-98.0) 11/21/19 11:45 MCH 25.6 pg (27.0-32.0) L 11/21/19 11:45 MCHC 31.4 g/dL (31.0-37.0) 11/21/19 11:45 RDW Std Deviation 44.2 fl (28.0-62.0) 11/21/19 11:45 RDW Coeff of Caroline 15 % (11.0-15.0) 11/21/19 11:45 Plt Count 239 K/uL (150-400) 11/21/19 11:45 MPV 12.10 fL (7.40-12.00) H 11/21/19 11:45 SARS-CoV-2 RNA (RT-PCR) NEGATIVE (NEGATIVE) 11/21/19 11:55 Blood Type A POSITIVE 11/21/19 11:45 Antibody Screen NEGATIVE 11/21/19 11:45 - Allergies Allergies/Adverse Reactions: Allergies Allergy/AdvReac Type Severity Reaction Status Date / Time Penicillins Allergy Intermediate Swelling Verified 11/10/18 08:54 - Blood Blood Available: No - Anesthesia Plan Pre-Op Medication Ordered: None - Acknowledgements Anesthesia Type Planned: Epidural Pt an Appropriate Candidate for the Planned Anesthesia: Yes Alternatives and Risks of Anesthesia Discussed w Pt/Guardian: Yes Pt/Guardian Understands and Agrees with Anesthesia Plan: Yes PreAnesthesia Questionnaire - Past Health History Medical/Surgical History: Denies Medical/Surgical History HEENT History: Reports: Impaired Vision, Other (See Below) Other HEENT History: wears glasses and contacts Cardiovascular History: Reports: Other (See Below) 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, lasted 3 months 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: Psychiatric History: Reports: Anxiety, Depression Endocrine/Metabolic History: Reports: Obesity/BMI 30+ Hematologic History: Reports: B12 Deficiency, Other (See Below) Other Hematologic History: Vit D deficiency - Infectious Disease History Infectious Disease History: Reports: Chicken Pox - Past Surgical History HEENT Surgical History: Reports: Adenoidectomy, Tonsillectomy Musculoskeletal Surgical History: Reports: Other (See Below) Other Musculoskeletal Surgeries/Procedures:: knee sx 2014 - SUBSTANCE USE Smoking Status *Q: Never Smoker Second Hand Smoke Exposure: Yes Recreational Drug Use History: No - HOME MEDS Home Medications: Home Meds Pnv No.95/Ferrous Fum/Folic AC [ Tablet] 1 tab PO DAILY 10/24/18 [History] - CURRENT (IN HOUSE) MEDS Current Meds: Current Medications Butorphanol Tartrate (Stadol) 1 mg IVPUSH Q1H PRN PRN Reason: Pain Carboprost Tromethamine (Hemabate Ds) 250 mcg IM ASDIRECTED PRN PRN Reason: Post Hemorrhage Lactated Ringer's (Ringers, Lactated) 1,000 mls @ 150 mls/hr IV ASDIRECTED LIEN Last Admin: 11/21/19 12:50 Dose: 150 mls/hr Documented by: Oxytocin/Sodium Chloride (Oxytocin 30 Unit/500 Ml-Ns) 30 unit in 500 mls @ 250 mls/hr IV TITRATE LIEN Tranexamic Acid 1,000 mg/ (Sodium Chloride) 110 mls @ 660 mls/hr IV ONETIME PRN PRN Reason: Bleeding Oxytocin/Sodium Chloride (Oxytocin 30 Unit/500 Ml-Ns) 30 unit in 500 mls @ 2 mls/hr IV TITRATE LIEN; Protocol Vancomycin HCl 2 gm/ Sodium (Chloride) 500 mls @ 250 mls/hr IV Q8H LIEN Lidocaine HCl (Xylocaine 1%) 50 ml INJECT ONETIME PRN PRN Reason: Laceration repair Methylergonovine Maleate (Methergine) 0.2 mg IM ASDIRECTED PRN PRN Reason: Post Hemorrhage Misoprostol (Cytotec) 200 mcg PO ONETIME PRN PRN Reason: Post Hemorrhage Nalbuphine HCl (Nubain) 10 mg IVPUSH Q1H PRN PRN Reason: Pain (severe 7-10) Sodium Chloride (Saline Flush) 10 ml FLUSH ASDIRECTED PRN PRN Reason: Keep Vein Open Sodium Chloride (Saline Flush) 2.5 ml FLUSH ASDIRECTED PRN PRN Reason: Keep Vein Open Sodium Chloride (Normal Saline) 10 ml IV ASDIRECTED PRN PRN Reason: IV Use Sterile Water (Sterile Water For Irrigation) 1,000 ml IRR ASDIRECTED PRN PRN Reason: delivery Terbutaline Sulfate (Brethine) 0.25 mg SUBCUT ASDIRECTED PRN PRN Reason: Tacysystole Discontinued Medications Fentanyl (Sublimaze) Confirm Administered Dose 100 mcg .ROUTE .STK-MED ONE Stop: 11/21/19 17:21 Vancomycin HCl 2 gm/ Sodium (Chloride) 500 mls @ 331.981 mls/hr IV Q8H [facility] Last Admin: 11/21/19 13:10 Dose: 331.981 mls/hr Documented by: Fentanyl/Bupivacaine HCl (Fentanyl/Bupivacaine/Ns 2 Mcg-0.125% 250 Ml) Confirm Administered Dose 250 mls @ as directed .ROUTE .STK-MED ONE Stop: 11/21/19 17:21
--- NOTE | 2019-11-21 22:08 | PCM.DEL ---
L & D Note - General Info Date of Service: 11/21/19 - Delivery Note Labor: Induced by Oxytocin Infant Delivery Method: Spontaneous Vaginal Delivery-Single Presentation: Left Occiput Anterior (FAUZIA) Nuchal Cord: None Prep: Other Anesthesia Type: Epidural Amniotic Fluid Description: Clear Episiotomy Type: None Laceration: Vaginal Suture type: Vicryl Suture size: 3-0 Placenta: Intact, Spontaneous Cord: 3 Vessels Score 1 min: 8 Score 5 min: 9 Delivery Comments (Free Text/Narrative):: Liveborn male, weight is pending - General Info Date of Service: 11/21/19 - Patient Data Weight - Most Recent: 114.305 kg Lab Results Last 24 Hours: Laboratory Results - last 24 hr 11/21/19 11/21/19 11/21/19 Range/Units 11:45 11:45 11:55 WBC 10.84 (4.0-11.0) K/uL RBC 3.98 L (4.30-5.90) M/uL Hgb 10.2 L (12.0-16.0) g/dL Hct 32.5 L (36.0-46.0) % MCV 81.7 (80.0-98.0) fL MCH 25.6 L (27.0-32.0) pg MCHC 31.4 (31.0-37.0) g/dL RDW Std Deviation 44.2 (28.0-62.0) fl RDW Coeff of Caroline 15 (11.0-15.0) % Plt Count 239 (150-400) K/uL MPV 12.10 H (7.40-12.00) fL SARS-CoV-2 RNA (RT-PCR) NEGATIVE (NEGATIVE) Blood Type A POSITIVE Antibody Screen NEGATIVE Med Orders - Current: Current Medications Butorphanol Tartrate (Stadol) 1 mg IVPUSH Q1H PRN PRN Reason: Pain Carboprost Tromethamine (Hemabate Ds) 250 mcg IM ASDIRECTED PRN PRN Reason: Post Hemorrhage Lactated Ringer's (Ringers, Lactated) 1,000 mls @ 150 mls/hr IV ASDIRECTED LIEN Last Admin: 11/21/19 12:50 Dose: 150 mls/hr Documented by: Oxytocin/Sodium Chloride (Oxytocin 30 Unit/500 Ml-Ns) 30 unit in 500 mls @ 250 mls/hr IV TITRATE [facility] Tranexamic Acid 1,000 mg/ (Sodium Chloride) 110 mls @ 660 mls/hr IV ONETIME PRN PRN Reason: Bleeding Oxytocin/Sodium Chloride (Oxytocin 30 Unit/500 Ml-Ns) 30 unit in 500 mls @ 2 mls/hr IV TITRATE [facility]; Protocol Last Admin: 11/21/19 20:14 Dose: 6 munits/min, 6 mls/hr Documented by: Vancomycin HCl 2 gm/ Sodium (Chloride) 500 mls @ 250 mls/hr IV Q8H [facility] Last Admin: 11/21/19 21:10 Dose: 250 mls/hr Documented by: Lidocaine HCl (Xylocaine 1%) 50 ml INJECT ONETIME PRN PRN Reason: Laceration repair Methylergonovine Maleate (Methergine) 0.2 mg IM ASDIRECTED PRN PRN Reason: Post Hemorrhage Misoprostol (Cytotec) 200 mcg PO ONETIME PRN PRN Reason: Post Hemorrhage Nalbuphine HCl (Nubain) 10 mg IVPUSH Q1H PRN PRN Reason: Pain (severe 7-10) Sodium Chloride (Saline Flush) 10 ml FLUSH ASDIRECTED PRN PRN Reason: Keep Vein Open Sodium Chloride (Saline Flush) 2.5 ml FLUSH ASDIRECTED PRN PRN Reason: Keep Vein Open Sodium Chloride (Normal Saline) 10 ml IV ASDIRECTED PRN PRN Reason: IV Use Sterile Water (Sterile Water For Irrigation) 1,000 ml IRR ASDIRECTED PRN PRN Reason: delivery Terbutaline Sulfate (Brethine) 0.25 mg SUBCUT ASDIRECTED PRN PRN Reason: Tacysystole Discontinued Medications Fentanyl (Sublimaze) Confirm Administered Dose 100 mcg .ROUTE .STK-MED ONE Stop: 11/21/19 17:21 Vancomycin HCl 2 gm/ Sodium (Chloride) 500 mls @ 331.981 mls/hr IV Q8H [facility] Last Admin: 11/21/19 13:10 Dose: 331.981 mls/hr Documented by: Fentanyl/Bupivacaine HCl (Fentanyl/Bupivacaine/Ns 2 Mcg-0.125% 250 Ml) Confirm Administered Dose 250 mls @ as directed .ROUTE .STK-MED ONE Stop: 11/21/19 17:21 - Problem List & Annotations (1) Vaginal delivery SNOMED Code(s): 012890951 Code(s): O80 - ENCOUNTER FOR FULL-TERM UNCOMPLICATED DELIVERY Status: Acute Current Visit: No - Problem List Review Problem List Initiated/Reviewed/Updated: Yes - My Orders Last 24 Hours: My Active Orders 11/21/19 Lunch Regular Diet [DIET] 11/21/19 11:45 RPR (SYPHILIS SERO) W/ RFLX [REF] Routine 11/21/19 12:11 Patient Status [ADT] Routine Bedrest Bathroom Privileges [RC] ASDIRECTED Communication Order [RC] ASDIRECTED Communication Order [RC] ASDIRECTED Heart Tones [RC] CONTINUOUS Non Stress Test [RC] PER UNIT ROUTINE May Shower [RC] ASDIRECTED Notify Provider [RC] PRN Notify Provider [RC] PRN Oxygen Therapy [RC] ASDIRECTED Up ad Jazmine [RC] ASDIRECTED Vaginal Exam [RC] PRN Vital Signs [RC] PER UNIT ROUTINE Vital Signs [RC] PER UNIT ROUTINE Butorphanol [Stadol] 1 mg IVPUSH Q1H PRN Carboprost Tromethamine [Hemabate DS] 250 mcg IM ASDIRECTED PRN Lidocaine 1% [Xylocaine 1%] 50 ml INJECT ONETIME PRN Methylergonovine [Methergine] 0.2 mg IM ASDIRECTED PRN Nalbuphine [Nubain] 10 mg IVPUSH Q1H PRN Sodium Chloride 0.9% [Normal Saline] 10 ml IV ASDIRECTED PRN Sodium Chloride 0.9% [Saline Flush] 10 ml FLUSH ASDIRECTED PRN Sodium Chloride 0.9% [Saline Flush] 2.5 ml FLUSH ASDIRECTED PRN Terbutaline [Brethine] 0.25 mg SUBCUT ASDIRECTED PRN Tranexamic Acid [Cyklokapron] 1,000 mg Sodium Chloride 0.9% [Normal Saline] 100 ml IV ONETIME Water For Irrigation,Sterile [Sterile Water for Irrigation] 1,000 ml IRR ASDIRECTED PRN miSOPROStoL [Cytotec] 200 mcg PO ONETIME PRN Scalp Electrode [WOMSER] Per Unit Routine Peripheral IV Insertion Adult [OM.PC] Routine Resuscitation Status Routine 11/21/19 12:15 Lactated Ringers [Ringers, Lactated] 1,000 ml IV ASDIRECTED Oxytocin/0.9 % Sodium Chloride [Oxytocin 30 Unit/500 ML-NS] 30 unit in 500 ml IV TITRATE Oxytocin/0.9 % Sodium Chloride [Oxytocin 30 Unit/500 ML-NS] 30 unit in 500 ml IV TITRATE Medication Administration Instruction [OM.PC] Q3H 11/21/19 21:10 Vancomycin 2 gm Sodium Chloride 0.9% [Normal Saline] 500 ml IV Q8H
[2019-11-21] MEDS ORDERED: Benzocaine/Menthol 20%-0.5% Spray 78 GM Cannister TOP PRN (22:09)
[2019-11-21] MEDS ORDERED: Bisacodyl 10 MG Supp RECTAL PRN (22:09)
[2019-11-21] MEDS ORDERED: Acetaminophen 500 MG Tab PO PRN ×2 (22:09)
[2019-11-21] MEDS ORDERED: Lanolin 100% Cream 7 GM Tube TOP PRN (22:09)
[2019-11-21] MEDS ORDERED: Ibuprofen 400 MG Tab PO PRN (22:09)
--- NOTE | 2019-11-21 22:49 | OR ---
SURGEON: Deysi Fisher M.D. DATE OF PROCEDURE: 11/21/2019 PREOPERATIVE DIAGNOSES: A 39-3/7 weeks' intrauterine , group B strep positive, penicillin allergic. POSTOPERATIVE DIAGNOSES: A 39-3/7 weeks' intrauterine , group B strep positive, penicillin allergic. PROCEDURES: Group B strep prophylaxis with vancomycin, Pitocin induction of labor, term spontaneous vaginal delivery, repair of vaginal laceration. PRIMARY SURGEON: Deysi Fisher MD ANESTHESIA: Epidural. ESTIMATED BLOOD LOSS: Less than 200 mL. FINDINGS: Liveborn male, score of 8 and 9, weight of 4200 g. Placenta spontaneous, Schultze intact, with 3 vessels. Small vaginal laceration, repaired. COMPLICATIONS: None known. DISPOSITION: Mother and baby are in LDR in good condition. BRIEF HISTORY: This is a 29-year-old female, G2, P 1-0-0-1. She has had one prior late delivery complicated by group B strep sepsis and at that time she was noted to be penicillin allergic, she was treated with clindamycin. During this , her group B strep was tested. It was insensitive to clindamycin; and therefore, she presents for IV vancomycin prior to induction of labor. She has had otherwise uncomplicated care. She presents for induction of labor, initially 3 to 4 cm dilated with fairly regular contractions prior to starting any induction, and she was at a minus 2 station. She received vancomycin 2 g IV. 4 hours later, Pitocin was initiated. She then had artificial rupture of membranes. She progressed to complete, approximately 8-1/2 hours after her first dose of vancomycin with the second dose of vancomycin being instilled. DESCRIPTION OF PROCEDURE: In the dorsal lithotomy position, the patient pushed over a 15-minute time period to a 5+ station at which time the head was delivered spontaneously and atraumatically over the perineum with support with subsequent delivery of the 's shoulders and body without any difficulty. However, due to suspected macrosomia; Rashida maneuver, suprapubic pressure, and rotation of the anterior shoulder were performed and with this there was subsequent delivery of the infant's shoulders and body without difficulty. The was bulb suctioned by nose and mouth and handed to the mother in the presence of the nurse attending delivery. The was a liveborn male, score of 8 and 9, weighing 4200 g. After the cord had ceased to pulsate, it was doubly clamped and cut. Cord blood was collected for cord ABGs as well as routine cord blood sampling. Pitocin was initiated after delivery of the to assist with delivery of the placenta which was delivered spontaneously, Schultze intact, with 3 vessels. Upon inspection the pelvis and perineum, there were no periurethral, vaginal sidewall, cervical, rectal, or perineal laceration. There was a small vaginal laceration at 6 o'clock that was repaired with a running lock suture of 3-0 Vicryl. Final sponge, needle, and instrument counts were correct. There were no complications. Mother and baby remained in LDR in good condition. NOLAN / MARCIA /[id number]
[2019-11-21] MEDS: Witch Hazel Medicated Pads 40/Jar TOP PRN ×2 (23:25→23:26)
[2019-11-22] MEDS: Ibuprofen 800 MG Tab PO PRN ×3 (01:18→13:58)
--- NOTE | 2019-11-22 07:55 | PCM48HPAN ---
Post Anesthesia Note - EVALUATION WITHIN 48HRS OF ANESTHETIC Vital Signs in Normal Range: Yes Patient Participated in Evaluation: Yes Respiratory Function Stable: Yes Airway Patent: Yes Cardiovascular Function Stable: Yes Hydration Status Stable: Yes Pain Control Satisfactory: Yes Nausea and Vomiting Control Satisfactory: Yes Mental Status Recovered: Yes Vital Signs: Last Vital Signs Temp 36.0 C L 11/22/19 05:19 Pulse 60 11/22/19 05:19 Resp 17 11/22/19 05:19 BP 121/72 11/22/19 05:19 Pulse Ox 97 11/22/19 05:19 - COMMENTS/OBSERVATIONS Free Text/Narrative:: Doing well.
[2019-11-22] MEDS: Docusate Sodium 100 MG Cap PO PRN ×2 (07:58→20:53)
--- NOTE | 2019-11-22 10:06 | PCM.PNPP ---
- General Info Date of Service: 11/22/19 Functional Status: Reports: Pain Controlled, Tolerating Diet, Ambulating, Urinating - Review of Systems General: Reports: No Symptoms HEENT: Reports: No Symptoms Pulmonary: Reports: No Symptoms Cardiovascular: Reports: No Symptoms Gastrointestinal: Reports: No Symptoms Genitourinary: Reports: No Symptoms Musculoskeletal: Reports: No Symptoms Skin: Reports: No Symptoms Neurological: Reports: No Symptoms Psychiatric: Reports: No Symptoms - General Info Date of Service: 11/22/19 - Patient Data Vital Signs - Most Recent: Last Vital Signs Temp 36.3 C 11/22/19 08:00 Pulse 69 11/22/19 08:00 Resp 18 11/22/19 08:00 BP 133/69 11/22/19 08:00 Pulse Ox 97 11/22/19 08:00 Weight - Most Recent: 114.305 kg Lab Results - Last 24 Hours: Laboratory Results - last 24 hr 11/21/19 11/21/19 11/21/19 Range/Units 11:45 11:45 11:55 WBC 10.84 (4.0-11.0) K/uL RBC 3.98 L (4.30-5.90) M/uL Hgb 10.2 L (12.0-16.0) g/dL Hct 32.5 L (36.0-46.0) % MCV 81.7 (80.0-98.0) fL MCH 25.6 L (27.0-32.0) pg MCHC 31.4 (31.0-37.0) g/dL RDW Std Deviation 44.2 (28.0-62.0) fl RDW Coeff of Caroline 15 (11.0-15.0) % Plt Count 239 (150-400) K/uL MPV 12.10 H (7.40-12.00) fL Cord ABG pH (7.18-7.38) Cord ABG Base Excess (-10--2) Cord VBG pH (7.25-7.45) Cord VBG Base Excess (-10--2) SARS-CoV-2 RNA (RT-PCR) NEGATIVE (NEGATIVE) Blood Type A POSITIVE Antibody Screen NEGATIVE 11/21/19 11/22/19 Range/Units 21:42 04:56 WBC (4.0-11.0) K/uL RBC (4.30-5.90) M/uL Hgb 8.9 L (12.0-16.0) g/dL Hct 28.7 L (36.0-46.0) % MCV (80.0-98.0) fL MCH (27.0-32.0) pg MCHC (31.0-37.0) g/dL RDW Std Deviation (28.0-62.0) fl RDW Coeff of Caroline (11.0-15.0) % Plt Count (150-400) K/uL MPV (7.40-12.00) fL Cord ABG pH 7.136 L (7.18-7.38) Cord ABG Base Excess -9 (-10--2) Cord VBG pH 7.285 (7.25-7.45) Cord VBG Base Excess -8 (-10--2) SARS-CoV-2 RNA (RT-PCR) (NEGATIVE) Blood Type Antibody Screen Med Orders - Current: Current Medications Acetaminophen (Tylenol Extra Strength) 500 mg PO Q4H PRN PRN Reason: Pain Acetaminophen (Tylenol Extra Strength) 1,000 mg PO Q4H PRN PRN Reason: Pain Benzocaine/Menthol (Dermoplast Pain Relief 20%-0.5% [place]) 78 gm TOP ASDIRECTED PRN PRN Reason: Perineal Comfort Measure Last Admin: 11/21/19 23:25 Dose: 1 applic Documented by: Bisacodyl (Dulcolax) 10 mg RECTAL ONETIME PRN PRN Reason: Constipation Docusate Sodium (Colace) 100 mg PO BID PRN PRN Reason: Constipation Last Admin: 11/22/19 07:58 Dose: 100 mg Documented by: Emollient Ointment (Lansinoh Hpa) 0 gm TOP ASDIRECTED PRN PRN Reason: Sore Nipples Ibuprofen (Motrin) 400 mg PO Q4H PRN PRN Reason: Pain Ibuprofen (Motrin) 800 mg PO Q6H PRN PRN Reason: Pain Last Admin: 11/22/19 07:58 Dose: 800 mg Documented by: Methylergonovine Maleate (Methergine) 0.2 mg IM ONETIME PRN PRN Reason: Excessive Vaginal Bleeding Witch Magda (Tucks) 1 pad TOP ASDIRECTED PRN PRN Reason: comfort care Last Admin: 11/21/19 23:26 Dose: 1 applic Documented by: Discontinued Medications Butorphanol Tartrate (Stadol) 1 mg IVPUSH Q1H PRN PRN Reason: Pain Carboprost Tromethamine (Hemabate Ds) 250 mcg IM ASDIRECTED PRN PRN Reason: Post Hemorrhage Fentanyl (Sublimaze) Confirm Administered Dose 100 mcg .ROUTE .STK-MED ONE Stop: 11/21/19 17:21 Lactated Ringer's (Ringers, Lactated) 1,000 mls @ 150 mls/hr IV ASDIRECTED [facility]EN Last Admin: 11/21/19 12:50 Dose: 150 mls/hr Documented by: Oxytocin/Sodium Chloride (Oxytocin 30 Unit/500 Ml-Ns) 30 unit in 500 mls @ 250 mls/hr IV TITRATE [facility]EN Tranexamic Acid 1,000 mg/ (Sodium Chloride) 110 mls @ 660 mls/hr IV ONETIME PRN PRN Reason: Bleeding Oxytocin/Sodium Chloride (Oxytocin 30 Unit/500 Ml-Ns) 30 unit in 500 mls @ 2 mls/hr IV TITRATE [facility]; Protocol Last Admin: 11/21/19 20:14 Dose: 6 munits/min, 6 mls/hr Documented by: Vancomycin HCl 2 gm/ Sodium (Chloride) 500 mls @ 331.981 mls/hr IV Q8H [facility] Last Admin: 11/21/19 13:10 Dose: 331.981 mls/hr Documented by: Vancomycin HCl 2 gm/ Sodium (Chloride) 500 mls @ 250 mls/hr IV Q8H [facility] Last Admin: 11/21/19 21:10 Dose: 250 mls/hr Documented by: Fentanyl/Bupivacaine HCl (Fentanyl/Bupivacaine/Ns 2 Mcg-0.125% 250 Ml) Confirm Administered Dose 250 mls @ as directed .ROUTE .[facility]-MED ONE Stop: 11/21/19 17:21 Lidocaine HCl (Xylocaine 1%) 50 ml INJECT ONETIME PRN PRN Reason: Laceration repair Methylergonovine Maleate (Methergine) 0.2 mg IM ASDIRECTED PRN PRN Reason: Post Hemorrhage Misoprostol (Cytotec) 200 mcg PO ONETIME PRN PRN Reason: Post Hemorrhage Nalbuphine HCl (Nubain) 10 mg IVPUSH Q1H PRN PRN Reason: Pain (severe 7-10) Sodium Chloride (Saline Flush) 10 ml FLUSH ASDIRECTED PRN PRN Reason: Keep Vein Open Sodium Chloride (Saline Flush) 2.5 ml FLUSH ASDIRECTED PRN PRN Reason: Keep Vein Open Sodium Chloride (Normal Saline) 10 ml IV ASDIRECTED PRN PRN Reason: IV Use Sterile Water (Sterile Water For Irrigation) 1,000 ml IRR ASDIRECTED PRN PRN Reason: delivery Terbutaline Sulfate (Brethine) 0.25 mg SUBCUT ASDIRECTED PRN PRN Reason: Tacysystole - Infant Interaction Infant Feeding: Other (see below) (pumping and feeding) Support Person: - Recovery Exam Fundal Tone: Firm Fundal Level: At Umbilicus Fundal Placement: Midline Lochia Amount: Small Lochia Color: Rubra/Red Episiotomy/Laceration: Approximated Bladder Status: Voiding Urinary Elimination: Voided - Exam General: Alert, Oriented Neck: Supple Lungs: Normal Respiratory Effort GI/Abdominal Exam: Soft, Non-Tender Extremities: Normal Range of Motion, Normal Capillary Refill. No: No Pedal Edema (trace) Skin: Warm, Dry, Intact Neurological: No New Focal Deficit - Problem List & Annotations (1) Vaginal delivery SNOMED Code(s): 714096329 Code(s): O80 - ENCOUNTER FOR FULL-TERM UNCOMPLICATED DELIVERY Status: Acute Current Visit: No - Problem List Review Problem List Initiated/Reviewed/Updated: Yes - My Orders Last 24 Hours: My Active Orders 11/21/19 11:45 RPR (SYPHILIS SERO) W/ RFLX [REF] Routine 11/21/19 22:09 Patient Status [ADT] Routine May Shower [RC] ASDIRECTED Up ad Jazmine [RC] ASDIRECTED Vital Signs [RC] PER UNIT ROUTINE Acetaminophen [Tylenol Extra Strength] 1,000 mg PO Q4H PRN Acetaminophen [Tylenol Extra Strength] 500 mg PO Q4H PRN Benzocaine/Menthol [Dermoplast Pain Relief 20%-0.5% [place]] 78 gm TOP ASDIRECTED PRN Docusate Sodium [Colace] 100 mg PO BID PRN Ibuprofen [Motrin] 400 mg PO Q4H PRN Ibuprofen [Motrin] 800 mg PO Q6H PRN Lanolin [Lansinoh HPA] See Dose Instructions TOP ASDIRECTED PRN Methylergonovine [Methergine] 0.2 mg IM ONETIME PRN bisacodyL [Dulcolax] 10 mg RECTAL ONETIME PRN witch Magda [Tucks] 1 pad TOP ASDIRECTED PRN Assess Lochia [WOMSER] Per Unit Routine Assess Uterine Involution [WOMSER] Per Unit Routine Peripheral IV Discontinue [OM.PC] Routine Resuscitation Status Routine 11/21/19 22:10 Perineal Care [OM.PC] Per Unit Routine Sitz Bath [OM.PC] Per Unit Routine 11/22/19 Breakfast Regular Diet [DIET] - Assessment Assessment:: PPD#1 after , stable, minimal lochia, tolerating diet. Pumping and getting some colostrum. Baby in observation due to GBS (no concerns) - Plan Plan:: continue care
[2019-11-23 07:56] VITALS: BP 139/76; PULSE 67
--- NOTE | 2019-11-23 08:29 | PCM.PNPP ---
- General Info Date of Service: 11/23/19 Functional Status: Reports: Pain Controlled, Tolerating Diet, Ambulating, Urinating - Review of Systems General: Reports: No Symptoms HEENT: Reports: No Symptoms Pulmonary: Reports: No Symptoms Cardiovascular: Reports: No Symptoms Gastrointestinal: Reports: No Symptoms Genitourinary: Reports: No Symptoms Musculoskeletal: Reports: No Symptoms Skin: Reports: No Symptoms Neurological: Reports: No Symptoms Psychiatric: Reports: No Symptoms - Patient Data Vital Signs - Most Recent: Last Vital Signs Temp 36.4 C 11/23/19 07:54 Pulse 67 11/23/19 07:54 Resp 18 11/23/19 07:54 BP 139/76 11/23/19 07:54 Pulse Ox 97 11/23/19 07:54 Weight - Most Recent: 114.305 kg Med Orders - Current: Current Medications Acetaminophen (Tylenol Extra Strength) 500 mg PO Q4H PRN PRN Reason: Pain Acetaminophen (Tylenol Extra Strength) 1,000 mg PO Q4H PRN PRN Reason: Pain Last Admin: 11/22/19 20:53 Dose: 1,000 mg Documented by: Benzocaine/Menthol (Dermoplast Pain Relief 20%-0.5% [place]) 78 gm TOP ASDIRECTED PRN PRN Reason: Perineal Comfort Measure Last Admin: 11/21/19 23:25 Dose: 1 applic Documented by: Bisacodyl (Dulcolax) 10 mg RECTAL ONETIME PRN PRN Reason: Constipation Docusate Sodium (Colace) 100 mg PO BID PRN PRN Reason: Constipation Last Admin: 11/22/19 20:53 Dose: 100 mg Documented by: Emollient Ointment (Lansinoh Hpa) 0 gm TOP ASDIRECTED PRN PRN Reason: Sore Nipples Ibuprofen (Motrin) 400 mg PO Q4H PRN PRN Reason: Pain Ibuprofen (Motrin) 800 mg PO Q6H PRN PRN Reason: Pain Last Admin: 11/22/19 13:58 Dose: 800 mg Documented by: Methylergonovine Maleate (Methergine) 0.2 mg IM ONETIME PRN PRN Reason: Excessive Vaginal Bleeding Witch Magda (Tucks) 1 pad TOP ASDIRECTED PRN PRN Reason: comfort care Last Admin: 11/21/19 23:26 Dose: 1 applic Documented by: Discontinued Medications Butorphanol Tartrate (Stadol) 1 mg IVPUSH Q1H PRN PRN Reason: Pain Carboprost Tromethamine (Hemabate Ds) 250 mcg IM ASDIRECTED PRN PRN Reason: Post Hemorrhage Fentanyl (Sublimaze) Confirm Administered Dose 100 mcg .ROUTE .STK-MED ONE Stop: 11/21/19 17:21 Lactated Ringer's (Ringers, Lactated) 1,000 mls @ 150 mls/hr IV ASDIRECTED [facility] Last Admin: 11/21/19 12:50 Dose: 150 mls/hr Documented by: Oxytocin/Sodium Chloride (Oxytocin 30 Unit/500 Ml-Ns) 30 unit in 500 mls @ 250 mls/hr IV TITRATE [facility] Tranexamic Acid 1,000 mg/ (Sodium Chloride) 110 mls @ 660 mls/hr IV ONETIME PRN PRN Reason: Bleeding Oxytocin/Sodium Chloride (Oxytocin 30 Unit/500 Ml-Ns) 30 unit in 500 mls @ 2 mls/hr IV TITRATE [facility]; Protocol Last Admin: 11/21/19 20:14 Dose: 6 munits/min, 6 mls/hr Documented by: Vancomycin HCl 2 gm/ Sodium (Chloride) 500 mls @ 331.981 mls/hr IV Q8H [facility] Last Admin: 11/21/19 13:10 Dose: 331.981 mls/hr Documented by: Vancomycin HCl 2 gm/ Sodium (Chloride) 500 mls @ 250 mls/hr IV Q8H [facility] Last Admin: 11/21/19 21:10 Dose: 250 mls/hr Documented by: Fentanyl/Bupivacaine HCl (Fentanyl/Bupivacaine/Ns 2 Mcg-0.125% 250 Ml) Confirm Administered Dose 250 mls @ as directed .ROUTE [facility]MED ONE Stop: 11/21/19 17:21 Lidocaine HCl (Xylocaine 1%) 50 ml INJECT ONETIME PRN PRN Reason: Laceration repair Methylergonovine Maleate (Methergine) 0.2 mg IM ASDIRECTED PRN PRN Reason: Post Hemorrhage Misoprostol (Cytotec) 200 mcg PO ONETIME PRN PRN Reason: Post Hemorrhage Nalbuphine HCl (Nubain) 10 mg IVPUSH Q1H PRN PRN Reason: Pain (severe 7-10) Sodium Chloride (Saline Flush) 10 ml FLUSH ASDIRECTED PRN PRN Reason: Keep Vein Open Sodium Chloride (Saline Flush) 2.5 ml FLUSH ASDIRECTED PRN PRN Reason: Keep Vein Open Sodium Chloride (Normal Saline) 10 ml IV ASDIRECTED PRN PRN Reason: IV Use Sterile Water (Sterile Water For Irrigation) 1,000 ml IRR ASDIRECTED PRN PRN Reason: delivery Terbutaline Sulfate (Brethine) 0.25 mg SUBCUT ASDIRECTED PRN PRN Reason: Tacysystole - Interaction Infant Disposition, : [place] in Room with Family Infant Interaction: Unable to Hold at this Time Infant Feeding: Other (see below) (pumping and feeding) Support Person: - Recovery Exam Fundal Tone: Firm Fundal Level: At Umbilicus Fundal Placement: Midline Lochia Amount: Scant Lochia Color: Rubra/Red Perineum Description: Intact, Minimal Bruising/Swelling Episiotomy/Laceration: None Bladder Status: Voiding Urinary Elimination: Voided - Exam General: Alert, Oriented HEENT: Pupils Equal Neck: Supple Lungs: Normal Respiratory Effort GI/Abdominal Exam: Soft, Non-Tender, No Organomegaly, No Distention, No Mass Extremities: Normal Inspection, Non-Tender, No Pedal Edema Skin: Warm, Dry, Intact Neurological: No New Focal Deficit Psy/Mental Status: Alert, Normal Affect, Normal Mood - Problem List & Annotations (1) Vaginal delivery SNOMED Code(s): 568083520 Code(s): O80 - ENCOUNTER FOR FULL-TERM UNCOMPLICATED DELIVERY Status: Acute Current Visit: No - Problem List Review Problem List Initiated/Reviewed/Updated: Yes - Assessment Assessment:: PPD#2 after , stable, minimal lochia, tolerating diet. Baby started on antibiotics until cultures are available - Plan Plan:: dismiss by midnight today, may continue to room in. Discharge instructions reviewed.
[2019-11-23] MEDS: Docusate Sodium 100 MG Cap PO PRN (08:40)
== END 2019-11-23 14:30 | disposition home or self-care (01) | DRG 560 ==
LOC: MW.OB 11:08 → OBSVTOIN 21:42 → MW.OB 11-22 00:10
PROVIDERS: ADMIT Obstetrics & Gynecology; ATTEND Obstetrics & Gynecology
PROC: 3E033VJ Introduction of Other Hormone into Peripheral Vein, Percutaneous Approach (ICD-10-PCS; principal; 2019-11-21)
PROC: 10907ZC Drainage of Amniotic Fluid, Therapeutic from Products of Conception, Via Natural or Artificial Opening (ICD-10-PCS; 2019-11-21)
PROC: 0UQGXZZ Repair Vagina, External Approach (ICD-10-PCS; 2019-11-21)
PROC: 00HU33Z Insertion of Infusion Device into Spinal Canal, Percutaneous Approach (ICD-10-PCS; 2019-11-21)
PROC: 3E0R3BZ Introduction of Anesthetic Agent into Spinal Canal, Percutaneous Approach (ICD-10-PCS; 2019-11-21)
DX: O71.4 Obstetric high vaginal laceration alone (principal); O98.82 Other maternal infectious and parasitic diseases complicating childbirth; B95.1 Streptococcus, group B, as the cause of diseases classified elsewhere; Z3A.39 39 weeks gestation of pregnancy; Z37.0 Single live birth; Z11.59 Encounter for screening for other viral diseases; O75.89 Other specified complications of labor and delivery; E55.9 Vitamin D deficiency, unspecified; Z88.0 Allergy status to penicillin
CPT/HCPCS: 36415; 51702; 59025; 59409; 82803; 85014; 85018; 85027; 86592; 86850; 86900; 86901; A9270-GY; J2590; J3370; J7040; J7120; U0002

== ENCOUNTER 2021-06-07 11:21 | Emergency (ER) | payer BC ==
[2021-06-07] MEDS ORDERED: Albuterol 8 GM Inhaler INH STA (11:55)
--- NOTE | 2021-06-07 11:58 | EDM.PDOC ---
ED HPI GENERAL MEDICAL PROBLEM - General Chief Complaint: Respiratory Problem Stated Complaint: Covid symptoms Time Seen by Provider: 06/07/21 11:25 - History of Present Illness INITIAL COMMENTS - FREE TEXT/NARRATIVE: History of present illness: [] The patient became sick on 22 May. She had a cough. She was diagnosed 26 May with influenza but it was more than 2 days so antivirals were not prescribed. The patient then was worse on 02 June and seen in the clinic. Her doctor on 04 June started her on antibiotics because she was having an ear infection at that time. She started azithromycin starting 04 June. Now she is coughing worse and is short of breath because of it. She is short of breath even at rest. Nothing makes it better or worse. Review of systems: As per history of present illness and below otherwise all systems reviewed and negative. Past medical history: As per history of present illness and as reviewed below otherwise noncontributory. Surgical history: As per history of present illness and as reviewed below otherwise noncontributory. Social history: No reported history of drug or alcohol abuse. Family history: As per history of present illness and as reviewed below otherwise noncontributory. Physical exam: Constitutional - well developed, well-nourished and in no acute distress HEENT - normocephalic, no evidence of trauma - external nose and mouth normal - no mass in neck and no JVD - mucosae moist EYES - full EOM, PERRL, no icterus - no evidence of inflammation, injection, or drainage Respiratory -prolonged expiratory phase of respiration-coughs involuntarily when she takes a deep breath-no respiratory distress, equal bilateral expansion, lungs clear to auscultation and no abnormal lung sounds Cardiovascular - Regular Rhythm with S1 and S2 appreciated and no murmur, gallop or rub. GI - abdomen soft without distension or organomegaly - normal bowel sounds - no guard or rebound Musculoskeletal no gross deformity of long bones or joints - no tenderness, swelling or edema Neurologic - Alert and oriented times four - CN II-XII grossly intact - motor sensory and coordination symmetrically normal Psychiatric - appropriate mood and affect with normal thought content Hematologic - No petechiae or purpura - mucosa appropriate color and sclera not pale - normal nail bed color and refill Integument - no rash or evidence of trauma - normal turgor Diagnostics: [] Therapeutics: [] Impression: [] Plan: [] Definitive disposition and diagnosis as appropriate pending reevaluation and review of above. Chest Pain Score (Numeric/FACES): 4 - Related Data Allergies Allergy/AdvReac Type Severity Reaction Status Date / Time Penicillins Allergy Intermediate Swelling Verified 06/07/21 11:26 Home Meds: Home Meds Celecoxib 200 mg PO 06/07/21 [History] buPROPion HCL [Bupropion Xl] 150 mg PO 06/07/21 [History] predniSONE [Prednisone] 20 mg PO BID 06/07/21 [History] traZODone 100 mg PO BEDTIME 06/07/21 [History] Past Medical History - Past Health History Medical/Surgical History: Denies Medical/Surgical History HEENT History: Reports: Impaired Vision, Other (See Below) Other HEENT History: wears glasses and contacts Cardiovascular History: Reports: Other (See Below) 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, lasted 3 months 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: Psychiatric History: Reports: Anxiety, Depression Endocrine/Metabolic History: Reports: Obesity/BMI 30+ Hematologic History: Reports: B12 Deficiency, Other (See Below) Other Hematologic History: Vit D deficiency - Infectious Disease History Infectious Disease History: Reports: Chicken Pox - Past Surgical History HEENT Surgical History: Reports: Adenoidectomy, Tonsillectomy Musculoskeletal Surgical History: Reports: Other (See Below) Other Musculoskeletal Surgeries/Procedures:: knee sx 2014 Social & Family History - Family History Family Medical History: No Pertinent Family History HEENT: Reports: None Cardiac: Reports: Hypertension Respiratory: Reports: None GI: Reports: Other (See Below) Other GI Family History: colon and stomach cancer : Reports: None OBGYN: Reports: Other (See Below) Other OBGYN Family History: uterine cancer Psychiatric: Reports: Depression Endocrine/Metabolic: Reports: Diabetes, type II Hematologic: Reports: Other (See Below) Other Hematologic Family History: iron deficiency Oncologic: Reports: Colon, Uterine, Other (See Below) Other Oncologic Family History: stomach - Tobacco Use Tobacco Use Status *Q: Never Tobacco User - Caffeine Use Caffeine Use: Reports: Coffee Caffeine Use Comment: 1 soda can/day - Recreational Drug Use Recreational Drug Use: No ED ROS GENERAL - Review of Systems Review Of Systems: Comprehensive ROS is negative, except as noted in HPI. ED EXAM, GENERAL - Physical Exam Exam: See Below Free Text/Narrative:: My physical exam is in the HPI Course - Vital Signs Last Recorded V/S: Last Vital Signs Temp 36.5 C 06/07/21 11:29 Pulse 95 06/07/21 12:12 Resp 20 06/07/21 12:12 BP 148/80 H 06/07/21 11:29 Pulse Ox 99 06/07/21 12:12 - Orders/Labs/Meds Orders: Active Orders 24 hr Category Date Time Status RT Post Treatment Assessment [RC] Click to Edit Care 06/07/21 11:56 Active RT Pre-Treatment Assessment [RC] Click to Edit Care 06/07/21 11:56 Active Labs: Laboratory Tests 06/07/21 Range/Units 11:25 SARS-CoV-2 RNA ([place]) POSITIVE H (NEGATIVE) Meds: Medications Discontinued Medications Generic Name Dose Route Start Last Admin Trade Name Freq PRN Reason Stop Dose Admin Albuterol 8 gm 06/07/21 11:55 06/07/21 12:12 Albuterol 8 Gm Inhaler INH 06/07/21 11:56 1 puff ONETIME STA Administration Departure - Departure Time of Disposition: 13:06 Disposition: Home, Self-Care 01 Condition: Good Clinical Impression: COVID-19 virus infection - Discharge Information Instructions: COVID-19 Vaccine Information, COVID-19 Quarantine vs. Isolation - [facility] (02/23/2021), COVID-19: What to Do If You Are Sick- [facility] (08/13/2020) Forms: ED Department Discharge Additional Instructions: Symptomatic care is what is needed. Follow-up with primary care. [facility] - Primary Care [address] [place] [id number] [id number] The following information is given to patients seen in the emergency department who are being discharged to home. This information is to outline your options for follow-up care. We provide all patients seen in our emergency department with a follow-up referral. The need for follow-up, as well as the timing and circumstances, are variable depending upon the specifics of your emergency department visit. If you don't have a primary care physician on staff, we will provide you with a referral. We always advise you to contact your personal physician following an emergency department visit to inform them of the circumstance of the visit and for follow-up with them and/or the need for any referrals to a consulting specialist. The emergency department will also refer you to a specialist when appropriate. This referral assures that you have the opportunity for follow-up care with a specialist. All of these measure are taken in an effort to provide you with optimal care, which includes your follow-up. Under all circumstances we always encourage you to contact your private physician who remains a resource for coordinating your care. When calling for follow-up care, please make the office aware that this follow-up is from your recent emergency room visit. If for any reason you are refused follow-up, please contact the [facility] Emergency Department at and asked to speak to the emergency department charge nurse. Sepsis Event Note (ED) - Evaluation Sepsis Screening Result: No Definite Risk - Focused Exam Vital Signs: Vital Signs Temp Pulse Resp BP Pulse Ox 06/07/21 12:12 95 20 99 06/07/21 11:29 36.5 C 82 16 148/80 H 96 - My Orders Last 24 Hours: My Active Orders 06/07/21 11:56 RT Post Treatment Assessment [RC] Click to Edit RT Pre-Treatment Assessment [RC] Click to Edit - Assessment/Plan Last 24 Hours: My Active Orders 06/07/21 11:56 RT Post Treatment Assessment [RC] Click to Edit RT Pre-Treatment Assessment [RC] Click to Edit
--- NOTE | 2021-06-07 12:43 | CR ---
INDICATION: Cough. TECHNIQUE: Frontal image of the chest. COMPARISON: None. FINDINGS: Lungs and pleural spaces clear. Heart, mediastinum and pulmonary vessels normal. No significant osseous abnormality. IMPRESSION: Negative chest. Dictated by Russell Delvalle MD @ 06/07/2021 12:42:21 PM (Electronically Signed)
[2021-06-07 13:31] VITALS: BP 124/84; PULSE 92
== END 2021-06-07 13:20 | disposition home or self-care (01) ==
LOC: MW.ED 11:21
DX: U07.1 COVID-19 (principal); I10 Essential (primary) hypertension; E66.9 Obesity, unspecified; Z68.41 Body mass index [BMI] 40.0-44.9, adult; Z88.0 Allergy status to penicillin
CPT/HCPCS: 71045; 87635; 99285; A9270; U0002

== ENCOUNTER 2024-04-27 11:11 | Emergency (ER) | payer BC ==
[2024-04-27 13:59] VITALS: BP 115/73; PULSE 71
== END 2024-04-27 13:59 | disposition home or self-care (01) ==
LOC: MW.ED 11:11
DX: M26.602 Left temporomandibular joint disorder, unspecified (principal); E66.9 Obesity, unspecified; Z88.0 Allergy status to penicillin; Z75.8 Other problems related to medical facilities and other health care; Z68.41 Body mass index [BMI] 40.0-44.9, adult
CPT/HCPCS: 99283